=== PATIENT | male | born 1965 | race Caucasian/White ===

== ENCOUNTER 2016-09-13 08:48 | Emergency (ER) | payer MEDICARE, OTHER ==
[~2016-09-13] VITALS: Ht 193 cm; Wt 66.0 kg
[~2016-09-13 08:48] MED LIST: CLIN150 PO; GABA100C4 PO
[2016-09-13 08:57] VITALS: BP 155/110; PULSE 91; RESP 16; TEMP 97.9; O2SAT 100
[2016-09-13] MEDS ORDERED: RISP0.5T20 PO (09:12)
[2016-09-13] MEDS ORDERED: TEGR200T PO (09:12)
--- NOTE | 2016-09-13 10:00 | PD ---
HPI Chief Complaint: Seizure Time Seen by Provider: 09:04 Travel History International Travel<30 days: No Contact w/Intl Traveler<30days: No Traveled to known affect area: No History of Present Illness HPI This is a 50 year old male who presents having had a seizure four days ago while he was walking down the stairs, injuring his left wrist, right ankle and 2nd toe on his left foot. Since then the patient has been taking care of them at home, however the pain in his wrist has been persistent, "grating and sharp" , keeping him up at night, 7/10 severity. He is able to walk on his ankle and is limping, and he has noticed a significant amount of swelling. The patient does have a history of seizures, but his insurance is mixed up and he has been out of seizure medication for 2 months. He has been having several grand mal seizures per month. Pt was on tegretol and gabapentin. PFSH Past Medical History ADHD: Yes Arthritis: No Asthma: No Autoimmune Disease: No Blood Disorders: No Bipolar Disorder: Yes Anxiety: Yes Depression: Yes Heart Rhythm Problems: No Cancer: No Cardiovascular Problems: Yes (htn on meds) High Cholesterol: Yes Chest Pain: No Congestive Heart Failure: No COPD: Yes Cystic Fibrosis: No Diminished Hearing: No Endocrine: No Gastrointestinal Disorders: No Genitourinary: No Herniated Disk: Yes Hypertension: Yes Immune Disorder: No Implanted Vascular Access Dvce: No Insomnia: Yes Musculoskeletal: Yes Neurologic: Yes (NEUROPATHY) Psychiatric: Yes (Extensive hx of treatment for depression/Bipolar Disorder) Reproductive: No Respiratory: Yes (copd) Integumentary: Yes (HX MRSA 10 YRS AGO FROM WOUND INFECTION) Immunizations Current: Yes Migraines: Yes PNEUMOCCOCAL Vaccine (Year): 1 Past Surgical History Abdominal Surgery: No Cardiac Surgery: No Ear Surgery: No Endocrine Surgery: No Eye Surgery: No Genitourinary Surgery: No Gynecologic Surgery: No Neurologic Surgery: Yes (CERVICAL FUSION) Oral Surgery: No Pacemaker: No Thoracic Surgery: No Other Surgery: Yes ( CARPAL TUNNEL SURGERY BILAT) Social History Alcohol Use: No (denies) Tobacco Use: Yes (1 PPD) Substance Use: Yes Allergies-Medications (Allergen,Severity, Reaction): Coded Allergies: *MDRO Multi-Drug Resistant Organism (Verified Adverse Reaction, Unknown, ) MRSA PCR screen (nares) POSITIVE - 05/09/16 MRSA (elbow) - 05/14/16 Reported Meds & Prescriptions Reported Meds & Active Scripts Active Reported Risperdal (Risperidone) 0.5 Mg Tab 0.5 Mg PO HS Tegretol (Carbamazepine) 200 Mg Tab 200 Mg PO BID Gabapentin 100 Mg Cap 100 Mg PO BID Review of Systems Except as stated in HPI: all other systems reviewed are Neg Physical Exam Narrative GENERAL:Well appearing, no acute distress SKIN: Left second toe is ecchymotic. HEAD: Atraumatic. Normocephalic. EYES: Pupils equal and round. No injection or drainage. ENT: Moist mucous membranes NECK: Trachea midline. CARDIOVASCULAR: Regular rate and rhythm. No murmur appreciated. RESPIRATORY: Mild diffuse wheezing. GASTROINTESTINAL: Abdomen soft, non-tender, nondistended. MUSCULOSKELETAL: Tender to palpation over the thenar eminence of the left hand, limited range of motion of the wrist secondary to pain. R. Ankle is swollen over the lateral malleolus, with some pain with inversion and limited range of motion. NEUROLOGICAL: Awake and alert. No obvious cranial nerve deficits. Moving all extremities. PSYCHIATRIC: Appropriate mood and affect; insight and judgment normal. Data Data Last Documented VS Vital Signs Date Time Temp Pulse Resp B/P Pulse Ox O2 Delivery O2 Flow Rate FiO2 09/13/16 08:57 97.9 91 16 155/110 100 Orders Wrist, Complete ([id number]) (09/13/16 ) Hand, Complete ([id number]) (09/13/16 ) Ankle, Complete ([id number]) (09/13/16 ) [facility] Medical Decision Making Medical Screen Exam Complete: Yes Emergency Medical Condition: Yes Interpretation(s) Afebrile, no tachycardia, hypertensive X-ray hand: Scaphoid fracture Last 24 hours Impressions Wrist X-Ray 09/13/16 0000 Signed Impressions: Service Date/Time: Tuesday, September 13, 2016 10:38 - CONCLUSION: Negative for fracture or dislocation. Followup in 7-10 days is suggested if symptoms persist. Umesh Kamara MD FACR Differential Diagnosis Scaphoid fracture, scapholunate dissociation, metacarpal fracture, wrist sprain , distal radius fracture, fibular fracture Narrative Course This is a 50-year-old male who presents to the emergency department with pain in his hand following a fall. He has evidence of a possible scaphoid fracture on x-ray which is consistent with his exam. He'll be placed in a thumb spica splint and he will follow up with hand surgery as an outpatient. He also is requesting refills of his seizure medication which I will provide him for one month. Diagnosis Primary Impression: Scaphoid fracture Qualified Code: S62.002A - Closed nondisplaced fracture of scaphoid of left wrist, unspecified portion of scaphoid, initial encounter Referrals: Lona Smiley MD Patient Instructions: General Instructions Additional Instructions: If you develop increasing numbness, weakness, coolness or severe pain of your hand return to the emergency department. It is very important that you follow up with a hand surgeon as you may need surgery. Med/Other Pt SpecificInfo: No Change to Meds Scripts Gabapentin 100 Mg [id number] Mg PO BID #60 CAP Ref 0 Prov:Amanda Henson MD 09/13/16 Carbamazepine 200 Mg [id number] Mg PO BID #60 TAB Ref 0 Prov:Amanda Henson MD 09/13/16 Disposition: 01 DISCHARGE HOME Condition: Stable Amanda Henson MD Sep 13, 2016 10:00
--- NOTE | 2016-09-13 11:35 | RADHPO ---
EXAM DATE/TIME: 09/13/2016 10:38 [facility] COMPARISON: No previous studies available for comparison. INDICATIONS : Left wrist pain post seizure. MEDICAL HISTORY : Hypertension. Hypercholesterolemia. Chronic obstructive pulmonary disease. SURGICAL HISTORY : Fusion, cervical. ENCOUNTER: Initial ACUITY: 4 - 6 days PAIN SCORE: 5/10 LOCATION: Left wrist FINDINGS: Three view examination of the left wrist demonstrates no soft tissue swelling, dislocation, or fractu re. The carpal bones are in normal alignment. The joint spaces are maintained. Bony mineralization is normal. CONCLUSION: Negative for fracture or dislocation. Followup in 7-10 days is suggested if symptoms persist. Umesh Kamara MD FACR on September 13, 2016 at 11:33 Board Certified Radiologist. This report was verified electronically.
--- NOTE | 2016-09-13 11:41 | RADHPO ---
EXAM DATE/TIME: 09/13/2016 10:43 [facility] COMPARISON: WRIST LEFT COMPLETE ([id number]), September 13, 2016, 10:38. INDICATIONS : Left hand pain post seizure. MEDICAL HISTORY : Hypertension. Hypercholesterolemia. Chronic obstructive pulmonary disease. SURGICAL HISTORY : Fusion, cervical. ENCOUNTER: Initial ACUITY: 4 - 6 days PAIN SCORE: 5/10 LOCATION: Left hand FINDINGS: There may be a small avulsion from the carpal navicular. In addition, there is a sclerotic line acro ss the carpal navicular could be a nondisplaced fracture. This could be confirmed by MRI. No other fractures are appreciated. CONCLUSION: Abnormal carpal navicular. Umesh Kamara MD FACR on September 13, 2016 at 11:18 Board Certified Radiologist. This report was verified electronically.
--- NOTE | 2016-09-13 11:43 | RADHPO ---
EXAM DATE/TIME: 09/13/2016 10:47 [facility] COMPARISON: No previous studies available for comparison. INDICATIONS : Right ankle pain after seizure. MEDICAL HISTORY : Hypertension. Hypercholesterolemia. Chronic obstructive pulmonary disease. SURGICAL HISTORY : Discectomy, thoracic. ENCOUNTER: Initial ACUITY: 4 - 6 days PAIN SCORE: 6/10 LOCATION: Right lateral ankle FINDINGS: There are degenerative changes about the lateral malleolus. Alignment is anatomic. A fracture is no t appreciated. There is no significant soft tissue swelling. CONCLUSION: Degenerative changes, otherwise negative. Umesh Kamara MD FACR on September 13, 2016 at 11:22 Board Certified Radiologist. This report was verified electronically.
[2016-09-13] MEDS ORDERED: CARB200T PO (11:49)
[2016-09-13] MEDS ORDERED: GABA100C4 PO (11:49)
== END 2016-09-13 12:23 | disposition home or self-care (01) ==
LOC: PHED 08:48
DX: S62.002A Unspecified fracture of navicular [scaphoid] bone of left wrist, initial encounter for closed fracture (principal); M25.571 Pain in right ankle and joints of right foot; G40.409 Other generalized epilepsy and epileptic syndromes, not intractable, without status epilepticus; E78.00 Pure hypercholesterolemia, unspecified; I10 Essential (primary) hypertension; F17.210 Nicotine dependence, cigarettes, uncomplicated; W10.9XXA Fall (on) (from) unspecified stairs and steps, initial encounter; Y93.89 Activity, other specified; Y92.9 Unspecified place or not applicable
CPT/HCPCS: 73110; 73130; 73610; 99283; L3808

== ENCOUNTER 2016-09-19 19:04 | Emergency (ER) | payer MEDICARE, OTHER ==
[~2016-09-19 19:04] MED LIST changes: +CARB200T PO; -CLIN150 PO; +RISP0.5T20 PO; +TEGR200T PO
[2016-09-19 19:32] VITALS: BP 112/72; PULSE 74; RESP 20; TEMP 97.3; O2SAT 100
[2016-09-19] MEDS ORDERED: VENTAER INH (20:02)
[2016-09-19] MEDS ORDERED: ADVA100A INH (20:02)
[2016-09-19 20:22] VITALS: BP 134/85; PULSE 84; RESP 16; TEMP 97.6; O2SAT 97
[2016-09-19] MEDS ORDERED: OXYC-396 PO (20:37)
[2016-09-19 20:43] LABS: AUTOMATED NEUTROPHIL # 7.2 TH/MM3 (1.8-7.7); BASOPHIL # 0.1 TH/MM3 (0-0.2); BASOPHIL % 0.7 % (0.0-2.0); EOSINOPHIL # 0.1 TH/MM3 (0-0.4); EOSINOPHIL % 1.3 % (0.0-4.0); HEMATOCRIT 37.6 % (39.0-51.0); HEMO FLAGS DIFF FINAL; LYMPH % 23.7 % (9.0-44.0); LYMPHOCYTE # 2.5 TH/MM3 (1.0-4.8); MEAN CELL VOLUME 89.5 FL (80.0-100.0); MEAN CORPUSCULAR HEMOGLOBIN 31.3 PG (27.0-34.0); MONO % 6.3 % (0.0-8.0); PLATELET COUNT 330 TH/MM3 (150-450); WHITE BLOOD COUNT 10.6 TH/MM3 (4.0-11.0)
[2016-09-19 20:47] LABS: POTASSIUM 3.6 MEQ/L (3.5-5.1)
[2016-09-19 20:50] LABS: BICARBONATE 32.4 MEQ/L (21.0-32.0)
[2016-09-19] MEDS ORDERED: CEPHALEXIN MONOHYDRATE 500 MG CAP PO ONE (21:00)
[2016-09-19] MEDS ORDERED: CEPH-460 PO (21:00)
[2016-09-19] MEDS ORDERED: BACT800T5 PO (21:00)
[2016-09-19] MEDS ORDERED: SULFAMETHOXAZOLE-TRIMETHOPRIM DS 800-160 MG TAB PO ONE (21:00)
--- NOTE | 2016-09-19 21:01 | PD ---
HPI Chief Complaint: Skin Problem Time Seen by Provider: 19:46 Travel History International Travel<30 days: No Contact w/Intl Traveler<30days: No Traveled to known affect area: No History of Present Illness HPI This 50-year-old male is complaining of redness and pain in his right foot. Been going on for several days and seems to be getting worse. He had an accident about a week ago where he fell skateboarding and broke his left wrist. His left wrist is in a cast. He has a history of cellulitis and says he feels like he is having cellulitis again. He is not aware of fevers. He is having pain in the foot which is aggravated by walking PFSH Past Medical History ADHD: Yes Arthritis: No Asthma: No Autoimmune Disease: No Blood Disorders: No Bipolar Disorder: Yes Anxiety: Yes Depression: Yes Heart Rhythm Problems: No Cancer: No Cardiovascular Problems: Yes (htn on meds) High Cholesterol: Yes Chest Pain: No Congestive Heart Failure: No COPD: Yes Cystic Fibrosis: No Diminished Hearing: No Endocrine: No Gastrointestinal Disorders: No Genitourinary: No Herniated Disk: Yes Hypertension: Yes Immune Disorder: No Implanted Vascular Access Dvce: No Insomnia: Yes Musculoskeletal: Yes Neurologic: Yes (NEUROPATHY) Psychiatric: Yes (Extensive hx of treatment for depression/Bipolar Disorder) Reproductive: No Respiratory: Yes (copd) Integumentary: Yes (HX MRSA FROM WOUND INFECTION- LEFT LEG ) Immunizations Current: Yes Migraines: Yes PNEUMOCCOCAL Vaccine (Year): 1 Past Surgical History Abdominal Surgery: No Cardiac Surgery: No Ear Surgery: No Endocrine Surgery: No Eye Surgery: No Genitourinary Surgery: No Gynecologic Surgery: No Neurologic Surgery: Yes (CERVICAL FUSION) Oral Surgery: No Pacemaker: No Thoracic Surgery: No Other Surgery: Yes ( CARPAL TUNNEL SURGERY BILAT) Social History Alcohol Use: No (denies) Tobacco Use: Yes (1 PPD) Substance Use: No Allergies-Medications (Allergen,Severity, Reaction): Coded Allergies: *MDRO Multi-Drug Resistant Organism (Verified Adverse Reaction, Unknown, ) MRSA PCR screen (nares) POSITIVE - 05/09/16 MRSA (elbow) - 05/14/16 Reported Meds & Prescriptions Reported Meds & Active Scripts Active Reported Oxycodone (Oxycodone HCl) 20 Mg Tab 20 Mg PO Q6H PRN Ventolin Hfa 18 GM Inh (Albuterol Sulfate) 90 Mcg/Act Aer 2 Puff INH Q4H PRN Advair Diskus Inh (Fluticasone-Salmeterol Inh) 100-50 Mcg/Blist Aer 1 Puff INH BID Rinse mouth after use. Risperdal (Risperidone) 0.5 Mg Tab 0.5 Mg PO HS Tegretol (Carbamazepine) 200 Mg Tab 200 Mg PO BID Gabapentin 100 Mg Cap 100 Mg PO BID Review of Systems General / Constitutional: Positive: Chills, No: Fever Eyes: No: Diploplia, Blurred Vision HENT: No: Headaches, Vertigo Cardiovascular: No: Chest Pain or Discomfort Respiratory: No: Cough, Shortness of Breath Gastrointestinal: No: Vomiting, Diarrhea Genitourinary: No: Urgency, Frequency Musculoskeletal: Positive: Myalgias, Pain Skin: Positive Rash Neurologic: No: Weakness, Dizziness Endocrine: No: Cold Intolerance Hematologic/Lymphatic: No: Easy Bruising Physical Exam Narrative GENERAL: Well-developed male SKIN: Warm and dry. HEAD: Atraumatic. Normocephalic. EYES: Pupils equal and round. No scleral icterus. No injection or drainage. ENT: No nasal bleeding or discharge. Mucous membranes pink and moist. NECK: Trachea midline. No JVD. CARDIOVASCULAR: Regular rate and rhythm. No murmur appreciated. RESPIRATORY: No accessory muscle use. Clear to auscultation. Breath sounds equal bilaterally. GASTROINTESTINAL: Abdomen soft, non-tender, nondistended. Hepatic and splenic margins not palpable. MUSCULOSKELETAL: No obvious deformities. No clubbing. No cyanosis. No edema. He has a cast on his left arm. There is erythema and warmth of the skin of the right foot and ankle. There are no fluctuant areas. He has good range of motion of the foot and ankle NEUROLOGICAL: Awake and alert. No obvious cranial nerve deficits. Motor grossly within normal limits. Normal speech. PSYCHIATRIC: Appropriate mood and affect; insight and judgment normal. Data Data Last Documented VS Vital Signs Date Time Temp Pulse Resp B/P Pulse Ox O2 Delivery O2 Flow Rate FiO2 09/19/16 20:22 97.6 84 16 134/85 97 Room Air Orders Complete Blood Count With Diff (09/19/16 20:06) Basic Metabolic Panel (Bmp) (09/19/16 20:06) Labs Laboratory Tests Test 09/19/16 20:30 White Blood Count 10.6 TH/MM3 Red Blood Count 4.20 MIL/MM3 Hemoglobin 13.1 GM/DL Hematocrit 37.6 % Mean Corpuscular Volume 89.5 FL Mean Corpuscular Hemoglobin 31.3 PG Mean Corpuscular Hemoglobin 35.0 % Concent Red Cell Distribution Width 14.0 % Platelet Count 330 TH/MM3 Mean Platelet Volume 7.6 FL Neutrophils (%) (Auto) 68.0 % Lymphocytes (%) (Auto) 23.7 % Monocytes (%) (Auto) 6.3 % Eosinophils (%) (Auto) 1.3 % Basophils (%) (Auto) 0.7 % Neutrophils # (Auto) 7.2 TH/MM3 Lymphocytes # (Auto) 2.5 TH/MM3 Monocytes # (Auto) 0.7 TH/MM3 Eosinophils # (Auto) 0.1 TH/MM3 Basophils # (Auto) 0.1 TH/MM3 CBC Comment DIFF FINAL Differential Comment Sodium Level 140 MEQ/L Potassium Level 3.6 MEQ/L Chloride Level 101 MEQ/L Carbon Dioxide Level 32.4 MEQ/L Anion Gap 7 MEQ/L Blood Urea Nitrogen 6 MG/DL Creatinine 0.90 MG/DL Estimat Glomerular Filtration 90 ML/MIN Rate Random Glucose 98 MG/DL Calcium Level 8.9 MG/DL [facility] Medical Decision Making Medical Screen Exam Complete: Yes Emergency Medical Condition: Yes Medical Record Reviewed: Yes Differential Diagnosis Differential includes cellulitis, sepsis Narrative Course Patient is afebrile. His white count is 10,000. He is stable for outpatient treatment. He will be placed on Keflex and Bactrim Diagnosis Primary Impression: Cellulitis of right foot Scripts Sulfamethoxazole-Trimethoprim (Bactrim DS)800-160 Mg Tab1 Tab PO BID 7 Days Ref 0 Prov:Momo Rock MD 09/19/16 Cephalexin (Keflex)500 Mg Ten455 Mg PO Q6H 7 Days Ref 0 Prov:Momo Rock MD 09/19/16 Disposition: 01 DISCHARGE HOME Condition: Stable Momo Rock MD Sep 19, 2016 21:01
[2016-09-19] MEDS ORDERED: ACETAMINOPHEN/HYDROcodone 325 MG/5 MG TAB PO ONE (21:15)
[2016-09-19 22:02] VITALS: RESP 18
== END 2016-09-19 22:02 | disposition home or self-care (01) ==
LOC: PHED 19:04
DX: L03.115 Cellulitis of right lower limb (principal)
CPT/HCPCS: 80048; 85025; 99284

== ENCOUNTER 2016-09-22 15:37 | Inpatient (IN) | payer MEDICARE, OTHER ==
[~2016-09-22] VITALS: Ht 193 cm; Wt 67.2 kg
[~2016-09-22 15:37] MED LIST changes: +ADVA100A INH; +BACT800T5 PO; -CARB200T PO; +CEPH-460 PO; +OXYC-396 PO; +VENTAER INH
[2016-09-22 15:43] VITALS: BP 145/87; PULSE 82; RESP 18; TEMP 97.6; O2SAT 100
--- NOTE | 2016-09-22 16:05 | PD ---
HPI Chief Complaint: Pain: Acute or Chronic Time Seen by Provider: 16:04 Travel History International Travel<30 days: No Contact w/Intl Traveler<30days: No Traveled to known affect area: No History of Present Illness HPI Patient is a 50-year-old male with history of bipolar disorder and schizophrenia who presents voluntarily by private vehicle for suicidality. He has been off of his medications including Risperdal for 2 months and has had disorganized thinking. He states over the last 3 days he feels like he has had periods in time which he does not remember what he was doing. He has been hearing voices including his noted him to hurt himself. He states yesterday he took "half a bottle "of Lortab but does not know how many were in it. He reports depression and disorganized hitting as well. He denies visual hallucinations. He denies other attempts at self-harm or planning. He also has been off his carbamazepine and gabapentin which he takes for seizure disorder, states last seizure was approximately 2 weeks ago. Of note is a 3 days prior for right foot and ankle cellulitis. It is improving return to the patient has the swelling and redness is down. He states it is painful to walk on the foot but is improving. No pain with ranging of the ankle. Denies fever or chills. He has been taking the Bactrim and Keflex. PFSH Past Medical History Hx Anticoagulant Therapy: No ADHD: Yes Arthritis: No Asthma: No Autoimmune Disease: No Blood Disorders: No Bipolar Disorder: Yes Anxiety: Yes Depression: Yes Heart Rhythm Problems: No Cancer: No Cardiovascular Problems: Yes (htn on meds) High Cholesterol: Yes Chest Pain: No Congestive Heart Failure: No COPD: Yes Cystic Fibrosis: No Diminished Hearing: No Endocrine: No Gastrointestinal Disorders: No Genitourinary: No Herniated Disk: Yes Hypertension: Yes Immune Disorder: No Implanted Vascular Access Dvce: No Insomnia: Yes Musculoskeletal: Yes Neurologic: Yes (NEUROPATHY) Psychiatric: Yes (Extensive hx of treatment for depression/Bipolar Disorder) Reproductive: No Respiratory: Yes (copd) Integumentary: Yes (HX MRSA FROM WOUND INFECTION- LEFT LEG ) Immunizations Current: Yes Migraines: Yes PNEUMOCCOCAL Vaccine (Year): 1 Past Surgical History Abdominal Surgery: No Cardiac Surgery: No Ear Surgery: No Endocrine Surgery: No Eye Surgery: No Genitourinary Surgery: No Gynecologic Surgery: No Neurologic Surgery: Yes (CERVICAL FUSION) Oral Surgery: No Pacemaker: No Thoracic Surgery: No Other Surgery: Yes ( CARPAL TUNNEL SURGERY BILAT) Social History Alcohol Use: No (denies) Tobacco Use: Yes (1 PPD) Substance Use: No Allergies-Medications (Allergen,Severity, Reaction): Coded Allergies: *MDRO Multi-Drug Resistant Organism (Verified Adverse Reaction, Unknown, ) MRSA PCR screen (nares) POSITIVE - 05/09/16 MRSA (elbow) - 05/14/16 Reported Meds & Prescriptions Reported Meds & Active Scripts Active Keflex (Cephalexin) 500 Mg Cap 500 Mg PO Q6H 7 Days Reported Ventolin Hfa 18 GM Inh (Albuterol Sulfate) 90 Mcg/Act Aer 2 Puff INH Q4H PRN Advair Diskus Inh (Fluticasone-Salmeterol Inh) 100-50 Mcg/Blist Aer 1 Puff INH BID Rinse mouth after use. Risperdal (Risperidone) 0.5 Mg Tab 0.5 Mg PO HS Tegretol (Carbamazepine) 200 Mg Tab 200 Mg PO BID Review of Systems Except as stated in HPI: all other systems reviewed are Neg Physical Exam Narrative GENERAL: Well-developed and well-nourished adult male in no acute distress. Disheveled. SKIN: Minimal erythema and warmth over the dorsal medial aspect of the right ankle and foot. There is no induration or fluctuance. No streaking. No edema. Mildly tender to palpation over the soft tissues medial ankle. Warm and dry. Good turgor without tenting. HEAD: Normocephalic and atraumatic. EYES: PERRL bilaterally, 5mm. EOMI bilaterally. No injection or icterus present. No proptosis. Lids without edema or erythema. ENT: Buccal mucosa pink and moist. Oropharynx free of erythema, tonsillar hypertrophy, masses, swelling, asymmetry and exudates. Uvula midline and airway patent. NECK: Supple, no meningeal signs. Trachea midline, no JVD. No cervical or facial lymphadenopathy. CARDIOVASCULAR: Regular rate and rhythm without murmurs, rubs, clicks or gallops dorsalis pedis and posterior tibial pulses 2+ bilaterally. No pedal edema. Capillary refill less than 2 seconds distal tip of all fingers of left upper extremity which are in a splint. RESPIRATORY: Clear to auscultation bilaterally with symmetrical rise and fall, no distress or use of accessory muscles. GASTROINTESTINAL: Non-tender, non-distended. Normal bowel sounds all 4 quadrants. No masses or organomegaly present. MUSCULOSKELETAL: Right foot and ankle has minor cellulitis to the right lower extremity which is resolving by history. No evidence of abscess. No pain on palpation of the joint and has normal range of motion in the right ankle. Thumb spica splint and placed in left upper extremity. No gait disturbances. Patient freely moving all four extremities spontaneously. Extremities without clubbing, cyanosis, or edema. No obvious deformities. NEUROLOGIC: CN II-XII grossly intact. Awake and alert. Motor grossly within normal limits. Normal speech. PSYCHIATRIC: Tearful. Appears to be responding to internal stimuli. Data Data Last Documented VS Vital Signs Date Time Temp Pulse Resp B/P Pulse Ox O2 Delivery O2 Flow Rate FiO2 09/22/16 19:31 67 18 134/98 98 09/22/16 17:39 Room Air 09/22/16 15:43 97.6 Orders Complete Blood Count With Diff (09/22/16 16:03) Comprehensive Metabolic Panel (09/22/16 16:03) Urinalysis - C+S If Indicated (09/22/16 16:03) Iv Access Insert/Monitor (09/22/16 16:03) Psych Screen (09/22/16 16:03) Drug Screen, Random Urine (09/22/16 16:03) Alcohol (Ethanol) (09/22/16 16:03) Salicylates (Aspirin) (09/22/16 16:03) Tylenol (Acetaminophen) (09/22/16 16:03) Electrocardiogram (09/22/16 16:06) Carbamazepine (Tegretol) (09/22/16 16:06) Sulfamet-Trimeth Ds 800-160 Mg (Bactrim (09/22/16 17:45) Cephalexin (Keflex) (09/22/16 17:45) Ibuprofen (Motrin) (09/22/16 18:45) Acetaminophen (Tylenol) (09/22/16 21:30) Magnesium Hydroxide Liq (Milk Of Magnesi (09/22/16 21:30) Al-Mag Hy-Si 40-40-4 Mg/Ml Liq (Mag-Al P (09/22/16 21:30) Albuterol Hfa Inh (Proair Hfa Inh) (09/22/16 21:30) Cephalexin (Keflex) (09/23/16 00:00) Carbamazepine (Tegretol) (09/23/16 09:00) Risperidone (Risperdal) (09/23/16 21:00) Budeson-Formot 80-4.5 Mcg Inh (Symbicort (09/23/16 09:00) Admit To Inpatient Psych (09/22/16 ) Vital Signs (Adult) ALINA.Q12H.E (09/22/16 21:38) Activity Oob Ad Mima (09/22/16 21:38) Level Of Observation (Psych) (09/22/16 21:38) Basic Metabolic Panel (Bmp) (09/23/16 06:00) Thyroid Stimulating Hormone (09/23/16 06:00) Free Thyroxine (T4) (09/23/16 06:00) Lipid Profile (09/23/16 06:00) Phosphorus (Po4) (09/23/16 06:00) Magnesium (Mg) (09/23/16 06:00) Uric Acid (09/23/16 06:00) Creatine Kinase (Cpk) (09/23/16 06:00) Rapid Plasmin Reagin Screen (09/23/16 06:00) Hemoglobin (Hgb) A1c (09/23/16 06:00) Vitamin D, 25-Hydroxy (09/23/16 06:00) Carbamazepine (Tegretol) (09/23/16 06:00) Vitamin B12 (09/23/16 06:00) Consult Hospitalist (09/22/16 ) Admit Order (Ed Use Only) (09/22/16 21:38) Labs Laboratory Tests Test 09/22/16 09/22/16 16:15 16:20 Urine Collection Type VOIDED Urine Color YELLOW Urine Turbidity CLEAR Urine pH 6.5 Urine Specific [place] 1.029 Urine Protein TRACE mg/dL Urine Glucose (UA) NEG mg/dL Urine Ketones TRACE mg/dL Urine Occult Blood NEG Urine Nitrite NEG Urine Bilirubin NEG Urine Leukocyte Esterase NEG Urine WBC 0-2 /hpf Urine Squamous Epithelial 0-2 /hpf Cells Microscopic Urinalysis Comment CULT NOT INDICATED Urine Opiates Screen NEG Urine Barbiturates Screen NEG Urine Amphetamines Screen NEG Urine Benzodiazepines Screen POS Urine Cocaine Screen NEG Urine Cannabinoids Screen POS White Blood Count 11.9 TH/MM3 Red Blood Count 4.99 MIL/MM3 Hemoglobin 15.1 GM/DL Hematocrit 44.2 % Mean Corpuscular Volume 88.6 FL Mean Corpuscular Hemoglobin 30.2 PG Mean Corpuscular Hemoglobin 34.1 % Concent Red Cell Distribution Width 13.7 % Platelet Count 427 TH/MM3 Mean Platelet Volume 7.7 FL Neutrophils (%) (Auto) 70.5 % Lymphocytes (%) (Auto) 22.8 % Monocytes (%) (Auto) 5.6 % Eosinophils (%) (Auto) 0.4 % Basophils (%) (Auto) 0.7 % Neutrophils # (Auto) 8.4 TH/MM3 Lymphocytes # (Auto) 2.7 TH/MM3 Monocytes # (Auto) 0.7 TH/MM3 Eosinophils # (Auto) 0.0 TH/MM3 Basophils # (Auto) 0.1 TH/MM3 CBC Comment DIFF FINAL Differential Comment Sodium Level 143 MEQ/L Potassium Level 4.0 MEQ/L Chloride Level 103 MEQ/L Carbon Dioxide Level 30.3 MEQ/L Anion Gap 10 MEQ/L Blood Urea Nitrogen 13 MG/DL Creatinine 1.00 MG/DL Estimat Glomerular Filtration 80 ML/MIN Rate Random Glucose 91 MG/DL Calcium Level 9.4 MG/DL Total Bilirubin 0.2 MG/DL Aspartate Amino Transf 16 U/L (AST/SGOT) Alanine Aminotransferase 18 U/L (ALT/SGPT) Alkaline Phosphatase 103 U/L Total Protein 7.5 GM/DL Albumin 3.6 GM/DL Salicylates Level 5.3 MG/DL Acetaminophen Level LESS THAN 2.0 MCG/ML Carbamazepine (Tegretol) Level LESS THAN 0.5 MCG/ML Ethyl Alcohol Level LESS THAN 3 MG/DL MDM Medical Decision Making Medical Screen Exam Complete: Yes Emergency Medical Condition: Yes Interpretation(s) EKG: Normal sinus rhythm with rate of 65. Normal axis and intervals. There is some T-wave flattening in lead V2 which is chronic when compared to previous. There is some peaked T waves that are asymmetric this is mainly in the precordial leads. Laboratory Tests Test 09/22/16 09/22/16 16:15 16:20 Urine Collection Type VOIDED Urine Color YELLOW (YELLW/STRAW) Urine Turbidity CLEAR (CLEAR) Urine pH 6.5 (5.0-8.5) Urine Specific [place] 1.029 (1.002-1.035) Urine Protein TRACE mg/dL (NEG-TRACE) Urine Glucose (UA) NEG mg/dL (NEG) Urine Ketones TRACE mg/dL (NEG) Urine Occult Blood NEG (NEG) Urine Nitrite NEG (NEG) Urine Bilirubin NEG (NEG) Urine Leukocyte Esterase NEG (NEG) Urine WBC 0-2 /hpf (0-5) Urine Squamous Epithelial 0-2 /hpf (0-5) Cells Microscopic Urinalysis Comment CULT NOT INDICATED Urine Opiates Screen NEG (NEG) Urine Barbiturates Screen NEG (NEG) Urine Amphetamines Screen NEG (NEG) Urine Benzodiazepines Screen POS (NEG) Urine Cocaine Screen NEG (NEG) Urine Cannabinoids Screen POS (NEG) White Blood Count 11.9 TH/MM3 (4.0-11.0) Red Blood Count 4.99 MIL/MM3 (4.50-5.90) Hemoglobin 15.1 GM/DL (13.0-17.0) Hematocrit 44.2 % (39.0-51.0) Mean Corpuscular Volume 88.6 FL (80.0-100.0) Mean Corpuscular Hemoglobin 30.2 PG (27.0-34.0) Mean Corpuscular Hemoglobin 34.1 % Concent (32.0-36.0) Red Cell Distribution Width 13.7 % (11.6-17.2) Platelet Count 427 TH/MM3 (150-450) Mean Platelet Volume 7.7 FL (7.0-11.0) Neutrophils (%) (Auto) 70.5 % (16.0-70.0) Lymphocytes (%) (Auto) 22.8 % (9.0-44.0) Monocytes (%) (Auto) 5.6 % (0.0-8.0) Eosinophils (%) (Auto) 0.4 % (0.0-4.0) Basophils (%) (Auto) 0.7 % (0.0-2.0) Neutrophils # (Auto) 8.4 TH/MM3 (1.8-7.7) Lymphocytes # (Auto) 2.7 TH/MM3 (1.0-4.8) Monocytes # (Auto) 0.7 TH/MM3 (0-0.9) Eosinophils # (Auto) 0.0 TH/MM3 (0-0.4) Basophils # (Auto) 0.1 TH/MM3 (0-0.2) CBC Comment DIFF FINAL Differential Comment Sodium Level 143 MEQ/L (136-145) Potassium Level 4.0 MEQ/L (3.5-5.1) Chloride Level 103 MEQ/L (98-107) Carbon Dioxide Level 30.3 MEQ/L (21.0-32.0) Anion Gap 10 MEQ/L (5-15) Blood Urea Nitrogen 13 MG/DL (7-18) Creatinine 1.00 MG/DL (0.60-1.30) Estimat Glomerular Filtration 80 ML/MIN (>89) Rate Random Glucose 91 MG/DL (74-106) Calcium Level 9.4 MG/DL (8.5-10.1) Total Bilirubin 0.2 MG/DL (0.2-1.0) Aspartate Amino Transf 16 U/L (15-37) (AST/SGOT) Alanine Aminotransferase 18 U/L (12-78) (ALT/SGPT) Alkaline Phosphatase 103 U/L (45-117) Total Protein 7.5 GM/DL (6.4-8.2) Albumin 3.6 GM/DL (3.4-5.0) Salicylates Level 5.3 MG/DL (2.8-20.0) Acetaminophen Level LESS THAN 2.0 MCG/ML (10.0-30.0) Carbamazepine (Tegretol) Level LESS THAN 0.5 MCG/ML (4.0-12.0) Ethyl Alcohol Level LESS THAN 3 MG/DL (0-5) Differential Diagnosis SI versus depression versus anxiety versus bipolar disorder versus schizophrenia versus substance abuse versus mood disorder versus personality disorder versus adjustment disorder Narrative Course Patient is a 50-year-old male with a history of bipolar disorder and schizophrenia who has been off his medications for approximately 2 months. He presents voluntarily with complaint of suicidality with attempt with opioids 2 days ago, depression, auditory hallucinations, and having periods of time where he does not recall events. He denies any seizures but has been off his seizure medications for several weeks as well. He is afebrile and nontoxic appearing. He has a mild cellulitis to the right lower extremity which is resolving by history, he is taking his medications. He has a thumb spica splint in the left upper extremity for a presumable scaphoid fracture due to a fall on September 13, 2016. Ordered EKG, labs including carbamazepine level, alcohol, Tylenol and salicylates. A sitter is observing the patient. He was given his dose of Bactrim and Keflex for the afternoon. CBC shows leukocytosis of 11.9 with a mild neutrophilia, no bands. Metabolic panel shows creatinine 1.00. Urinalysis trace ketones. Ethanol less than 3. UDS positive for cannabinoids and benzodiazepines, no opioids. Tylenol less than 2. Salicylates 5.3. Carbamazepine level is low. I discussed with Dr. Rock who feels the cellulitis is improving compared to 3 days prior when he saw the patient and as the patient reports improvement and is on appropriate treatment there is no need for any further emergent intervention. The leukocytosis is due to the cellulitis or possibly his agitated state does not require any inpatient treatments. Patient is medically cleared to proceed with psych evaluation. [facility]. Recommend continuing antibiotics while he is being evaluated. [facility] is being [facility] where psychiatry will further evaluate him. I gave report to the nurse Katie Lopes who understands the patient is voluntary but these be converted to a Hughes act if attempts to leave. Diagnosis Primary Impression: Attempted suicide Additional Impression: Cellulitis of right foot Condition: Stable Darrel Garcia III Sep 22, 2016 16:05
[2016-09-22 16:38] LABS: AUTOMATED NEUTROPHIL # 8.4 TH/MM3 (1.8-7.7); BASOPHIL # 0.1 TH/MM3 (0-0.2); BASOPHIL % 0.7 % (0.0-2.0); EOSINOPHIL % 0.4 % (0.0-4.0); HEMATOCRIT 44.2 % (39.0-51.0); HEMO FLAGS DIFF FINAL; LYMPH % 22.8 % (9.0-44.0); LYMPHOCYTE # 2.7 TH/MM3 (1.0-4.8); MEAN CELL VOLUME 88.6 FL (80.0-100.0); MEAN CORPUSCULAR HEMOGLOBIN 30.2 PG (27.0-34.0); MEAN CORPUSCULAR HGB CONC 34.1 % (32.0-36.0); MONO % 5.6 % (0.0-8.0); NEUT % 70.5 % (16.0-70.0); PLATELET COUNT 427 TH/MM3 (150-450); RED BLOOD COUNT 4.99 MIL/MM3 (4.50-5.90); RED CELL DISTRIBUTION WIDTH 13.7 % (11.6-17.2); WHITE BLOOD COUNT 11.9 TH/MM3 (4.0-11.0)
[2016-09-22 16:40] LABS: BLOOD, URINE NEG (NEG); GLUCOSE,URINE NEG (NEG); KETONE, URINE TRACE mg/dL (NEG); NITRITE,URINE NEG (NEG); PH, URINE 6.5 (5.0-8.5)
[2016-09-22 16:46] LABS: CHLORIDE 103 MEQ/L (98-107); SODIUM (NA) 143 MEQ/L (136-145)
[2016-09-22 16:50] LABS: ANION GAP 10 MEQ/L (5-15); BICARBONATE 30.3 MEQ/L (21.0-32.0); BLOOD UREA NITROGEN 13 MG/DL (7-18)
[2016-09-22 16:53] LABS: ALT (GPT) 18 U/L (12-78); AST (GOT) 16 U/L (15-37); GLOMERULAR FILTRATION RATE 80 ML/MIN (>89)
[2016-09-22 16:54] LABS: TOTAL BILIRUBIN ADULT 0.2 MG/DL (0.2-1.0)
[2016-09-22 16:56] LABS: METHOD OF COLLECTION VOIDED; URINE COLOR YELLOW (YELLW/STRAW)
[2016-09-22 16:56] LABS: ALKALINE PHOSPHATASE 103 U/L (45-117)
[2016-09-22 16:57] LABS: COMMENT (UR) CULT NOT INDICATED; CULTURE IF INDICATED CULT NOT INDICATED; SQUAMOUS EPITHELIAL CELL URINE 0-2 /hpf (0-5); WBC, URINE 0-2 /hpf (0-5)
[2016-09-22 16:58] LABS: AMPHETAMINE, URINE NEG (NEG)
[2016-09-22 16:59] LABS: BARBITURATES, URINE NEG (NEG)
[2016-09-22 17:04] LABS: COCAINE, URINE NEG (NEG)
[2016-09-22 17:39] VITALS: BP 148/86; PULSE 88; RESP 18; O2SAT 99
[2016-09-22 17:40] LABS: ACETAMINOPHEN LESS THAN 2.0 MCG/ML (10.0-30.0)
[2016-09-22] MEDS ORDERED: CEPHALEXIN MONOHYDRATE 500 MG CAP PO ONE (17:45)
[2016-09-22] MEDS ORDERED: SULFAMETHOXAZOLE-TRIMETHOPRIM DS 800-160 MG TAB PO ONE (17:45)
[2016-09-22] MEDS ORDERED: IBUPROFEN 400 MG TAB PO ONE (18:45)
[2016-09-22 19:31] VITALS: BP 134/98
[2016-09-22] MEDS ORDERED: MAGNESIUM HYDROXIDE SUSP 30 ML CUP PO PRN (21:30)
[2016-09-22] MEDS ORDERED: ALBUTEROL SULFATE 90 MCG/ACT HFA 8 GM INHALER INH PRN (21:30)
[2016-09-22] MEDS ORDERED: ALUMINUM/MAGNESIUM/SIMETH 30 ML CUP PO PRN (21:30)
[2016-09-22 22:26] VITALS: BP 122/96; PULSE 77; RESP 16; TEMP 97.3; O2SAT 96
[2016-09-22] MEDS: CEPHALEXIN MONOHYDRATE 500 MG CAP PO SCH (23:00)
[2016-09-23] MEDS: CEPHALEXIN MONOHYDRATE 500 MG CAP PO SCH ×4 (05:38→23:10)
[2016-09-23 05:44] VITALS: BP 126/78; PULSE 96; RESP 18; TEMP 98; O2SAT 96
[2016-09-23] MEDS: carBAMazepine 200 MG TAB PO SCH ×2 (08:42→19:52)
[2016-09-23] MEDS: SULFAMETHOXAZOLE-TRIMETHOPRIM DS 800-160 MG TAB PO SCH (08:44)
[2016-09-23] MEDS: BUDESONIDE-FORMOTEROL 80/4.5 MCG INHALER INH SCH ×2 (09:00→19:52)
[2016-09-23 10:01] LABS: ANION GAP 5 MEQ/L (5-15); BLOOD UREA NITROGEN 11 MG/DL (7-18); CHLORIDE 102 MEQ/L (98-107); FREE T4 0.91 NG/DL (0.76-1.46); GLOMERULAR FILTRATION RATE 67 ML/MIN (>89); HDL CHOLESTEROL 49.9 MG/DL (40.0-60.0); LDL CHOLESTEROL 108 MG/DL (0-99); MAGNESIUM 2.2 MG/DL (1.5-2.5); POTASSIUM 3.9 MEQ/L (3.5-5.1); SODIUM (NA) 139 MEQ/L (136-145); URIC ACID 4.1 MG/DL (2.6-7.2)
[2016-09-23 10:13] LABS: CREATINE KINASE 94 U/L (39-308)
--- NOTE | 2016-09-23 12:02 | HHI.HP ---
Provisional Diagnosis Admission Date Sep 22, 2016 at 21:43 [place] I. 1. Polysubstance abuse with substance-induced mood disorder Rule out underlying psychotic disorder [place] II. Deferred [place] V. GAF is 30 presently Certification of Person's Competence To Provide Express and Informed Consent I have personally examined Nazario Flores , a person being served at [facility] on, Sep 23, 2016 11:49. Express and informed consent means consent voluntarily given in writing, by a competent person, after sufficient explanation and disclosure of the subject matter involved to enable the person to make a knowing and willful decision without any element of force, fraud, deceit, duress, or other form of constraint or coercion. This person is 18 years of age or older, is not now known to be incompetent to consent to treatment with a guardian advocate, and does not have a health care surrogate or proxy currently making medical treatment decisions. I have found this person to be one of the following: [x] Competent to provide express and informed consent, as defined above, for voluntary admission to this facility and is competent to provide express and informed consent for treatment. He/she has the consistent capacity to make well reasoned, willful, and knowing decisions concerning his or her medical or mental health treatment. The person fully and consistently understands the purpose of the admission for examination/placement and is fully capable of personally exercising all rights assured [place] Incompetent to provide express and informed consent to voluntary admission, and this is incompetent to provide express and informed consent to treatment. The person must be transferred to involuntary status and a petition for a guardian advocate filed with the Circuit Court. [] Refusing to provide express and informed consent to voluntary admission but is competent to provide express and informed consent for treatment. The person must be discharged or transferred to involuntary status. Form shall be completed within 24 hours of a person's arrival at the receiving facility and filed in the clinical record of each person: 1. Admitted on a voluntary basis 2. Permitted to provide express and informed consent to his/her own treatment 3. Allowed to transfer from involuntary to voluntary status 4. Prior to permitting a person to consent to his or her own treatment after having been previously found incompetent to consent to treatment. History of Present Illness Capacity: Has Capacity HPI Mr. Flores is a 50-year-old male with a reported history of schizophrenia who presents voluntarily for psychiatric evaluation. Reviewing the ED provider notes I see that the patient took a quantity of Lortab yesterday for unclear reasons and has been nonadherent with his antiepileptics. Reviewing the electronic medical record, I note the patient was seen most recently by Dr. Soriano in May of last year. Patient seen and examined with nurse. Chart reviewed. Case discussed with nursing staff. On my examination today, the patient reports that he has been feeling more depressed recently related to the upcoming anniversary of his ' s passing. He feels very guilty because his by overdose when the 2 were using drugs together. He says "I'm over the suicide trip" and denies suicidal ideation or homicidal ideation at this time. He does report that his sleep is disrupted. He feels hopeless about the future. He reports hearing the voice of his who is occasionally deprecatory but noncommanding. No hypomanic or manic symptoms noted. No evident delusional beliefs. Patient does complain of some unrealized anxiety. The remainder of the psychiatric ROS is negative. Past psychiatric history: Patient reports prior diagnosis of schizophrenia. He says that he has done well in the past on Risperdal and BuSpar. He is not currently under the care of a psychiatrist. He reports his most recent psychiatric admission was here at [facility]. He reports multiple prior suicide attempts in the past. Family history: Patient reports a nonspecific family history of mental illness noting that there is a lot of "craziness" in his family. He denies any family history of suicide. Chemical dependency history: Patient admits to a history of abuse of narcotic pain medication but denies any recent substance abuse. His toxicology is positive for cannabinoids and benzodiazepines. I did review his controlled substances database report and note extensive multisourcing of prescribers. Most recently he was prescribed oxycodone and Valium on September 18 tabs of each for a 30 day supply. Social history: Patient reports that he lives alone. His is and he has 4 children but no grandchildren. He has his GED. He is on disability. Denies any or legal history. Denies any access to guns or firearms. Denies any bahai or spiritual beliefs. Review of Systems ROS Limitations: Poor Historian Other No somatic complaints Past Psych History Psychological trauma history No reported trauma history Substance Abuse History Drugs/Alcohol past 12 months See above Past Family Social History Coded Allergies: *MDRO Multi-Drug Resistant Organism (Verified Adverse Reaction, Unknown, ) MRSA PCR screen (nares) POSITIVE - 05/09/16 MRSA (elbow) - 05/14/16 Past Medical History See electronic medical record Active Scripts Cephalexin (Keflex)500 Mg Mes489 Mg PO Q6H 7 Days Ref 0 Prov:Momo Rock MD 09/19/16 Reported Medications Albuterol 18 GM Inh (Ventolin Hfa 18 GM Inh)90 Mcg/Act Aer2 Puff INH Q4H PRN ( SHORTNESS OF BREATH) #1 INHALER Ref 0 09/19/16 Fluticasone-Salmeterol Inh (Advair Diskus Inh)100-50 Mcg/Blist Aer1 Puff INH BID #1 INHALER Ref 0 Rinse mouth after use. 09/19/16 Risperidone (Risperdal)0.5 Mg Tab0.5 Mg PO HS #30 TAB Ref 0 09/13/16 Carbamazepine (Tegretol)200 Mg Muh580 Mg PO BID #60 TAB Ref 0 09/13/16 Discontinued Reported Medications Oxycodone 20 Mg Tab20 Mg PO Q6H PRN (PAIN) Ref 0 09/19/16 Gabapentin 100 Mg Eoe176 Mg PO BID #60 CAP Ref 0 06/12/16 Discontinued Scripts Sulfamethoxazole-Trimethoprim (Bactrim DS)800-160 Mg Tab1 Tab PO BID 7 Days Ref 0 Prov:oMmo Rock MD 09/19/16 Current Medications Medications (Trade) Dose Ordered Sig/Jack Route Start Time Stop Time Status Last Admin (Tylenol) 650 mg Q4H PRN PO 09/22/16 21:30 (Milk Of Magnesia Liq) 30 ml DAILY PRN PO 09/22/16 21:30 (Mag-Al Plus Susp Liq) 30 ml Q6H PRN PO 09/22/16 21:30 (Proair Hfa Inh) 2 puff Q4HR PRN INH 09/22/16 21:30 (Keflex) 500 mg Q6H PO 09/23/16 00:00 09/26/16 23:59 09/23/16 05:38 (TEGretol) 200 mg BID PO 09/23/16 09:00 09/23/16 08:42 (risperDAL) 0.5 mg HS PO 09/23/16 21:00 (Symbicort 80-4.5 Mcg Inh) 2 puff BID INH 09/23/16 09:00 (Bactrim Ds 800-160 Mg) 1 tab DAILY PO 09/23/16 09:00 09/26/16 08:59 09/23/16 08:44 Family History See above Social History See above Patient's Strengths (min. 2) In a monitored setting. Verbally fluent. Physical Exam Physical examination completed by ED provider. On my examination today, patient is in no acute physical distress. His left arm is bandaged reportedly from a skateboarding injury. No abnormal motor movements noted. Labs and vital signs reviewed. Vital Signs Vital Signs Date Time Temp Pulse Resp B/P Pulse Ox O2 Delivery O2 Flow Rate FiO2 09/23/16 05:44 98.0 96 18 126/78 96 09/22/16 17:39 Room Air Lab Results Item Value Date Time White Blood Count 11.9 TH/MM3 H 09/22/16 1620 Hemoglobin 15.1 GM/DL 09/22/16 1620 Platelet Count 427 TH/MM3 09/22/16 1620 Sodium Level 139 MEQ/L 09/23/16 0825 Potassium Level 3.9 MEQ/L 09/23/16 0825 Chloride Level 102 MEQ/L 09/23/16 0825 Carbon Dioxide Level 32.0 MEQ/L 09/23/16 0825 Anion Gap 5 MEQ/L 09/23/16 0825 Creatinine 1.16 MG/DL 09/23/16 0825 Blood Urea Nitrogen 11 MG/DL 09/23/16 0825 Aspartate Amino Transf (AST/SGOT) 16 U/L 09/22/16 1620 Alanine Aminotransferase (ALT/SGPT) 18 U/L 09/22/16 1620 Alkaline Phosphatase 103 U/L 09/22/16 1620 Total Creatine Kinase 94 U/L 09/23/16 0825 Vitamin B12 Level 859 PG/ML 09/23/16 0825 25-Hydroxy Vitamin D Total 29.1 ng/ML L 09/23/16 0825 Thyroid Stimulating Hormone 3rd Gen 0.312 uIU/ML L 09/23/16 0825 Free Thyroxine 0.91 NG/DL 09/23/16 0825 Urine Benzodiazepines Screen POS H 09/22/16 1615 Urine Cannabinoids Screen POS H 09/22/16 1615 Ethyl Alcohol Level LESS THAN 3 MG/DL 09/22/16 1620 Carbamazepine (Tegretol) Level LESS THAN 0.5 MCG/ML L 09/23/16 0825 Urinalysis bland. Mental Status Examination Patient is in hospital gown. He is somewhat disheveled. He is awake and alert and oriented 3. No motoric abnormalities noted. Speech is within normal limits for rate, tone and volume. Language and fund of knowledge seem average for age. Mood is depressed and affect is restricted. Thought process linear. No loosening of associations. No evident delusions. Describes auditory hallucinations as noted above. No other hallucinatory material. Denies suicidal or homicidal ideation. Insight and judgment are fair. Previous Suicide Attempts: No Assessment & Plan Problem List: (1) Other psychoactive substance abuse with psychoactive substance-induced mood disorder ICD Code: F19.14 Assessment & Plan This is a 50-year-old male with psychiatric history as detailed above who presents voluntarily to the ED for psychiatric evaluation. On my examination today, patient reports low mood occasioned by the anniversary of his 's passing. He did reportedly take a quantity of Lortab yesterday, but his toxicology is negative for opiates. I suspect that there are polysubstance use issues and and associated mood disorder. He does report a good response to Risperdal in the past. I will plan to admit the patient to the inpatient psychiatric unit for safety, observation and stabilization. Admit inpatient. Voluntary status. Consult the hospitalist for medical management of the patient. PT eval and falls precautions. CIWA with Ativan for any withdrawal. Risperdal 1 mg twice daily. Continue carbamazepine. Seizure prec. Atarax as needed for anxiety, Benadryl as needed for sleep, Cogentin as needed for EPS. Vitals every shift. Counselor to see. Disposition planning. Estimated length of stay: 7-9 days. Discharge Planning Pending psychiatric stabilization Request HC Surrog/Guard Advoc?: No Bhavesh Lopez MD Sep 23, 2016 12:01
[2016-09-23] MEDS ORDERED: BENZTROPINE MESYLATE 2 MG/2 ML VIAL IM PRN (12:15)
[2016-09-23] MEDS ORDERED: FLUMAZENIL 0.5 MG/5 ML VIAL IV PUSH PRN (12:15)
[2016-09-23] MEDS ORDERED: BENZTROPINE MESYLATE 1 MG TAB PO PRN (12:15)
[2016-09-23] MEDS ORDERED: LORazepam 2 MG/ML VIAL IV PUSH PRN ×4 (12:15)
[2016-09-23] MEDS: LORazepam 2 MG TAB PO PRN ×2 (13:06→19:52)
--- NOTE | 2016-09-23 13:13 | EKG ---
Date Performed: 09/22/2016 Time Performed: 16:19:42 PTAGE: 50 years EKG: Sinus rhythm Anterolateral ST elevation - possible early repolarization Compared to prior tracing no significant change Borderline ECG PREVIOUS TRACING : 06/08/2016 16.46 DOCTOR: Tank Hurley Interpretating Date/Time 09/23/2016 13:11:14
[2016-09-23] MEDS: NICOTINE 14 MG/24 HR PATCH TD SCH (16:45)
--- NOTE | 2016-09-23 16:52 | PD.CONS ---
HPI Service [facility] Hospitalists Consult Requested By Psychiatric services Reason for Consult Medical management including hypertension, cellulitis, seizure disorder, chronic pain and broken left arm Primary Care Physician Non-Staff Diagnoses: History of Present Illness This is a 50-year-old male patient with past medical history which includes bipolar, anxiety/depression, polysubstance abuse, suicide times the past, chronic neck and back pain status post heart cervical fusion, migraine headaches , degenerative disc disease, COPD, seizure disorder, hypertension, , hyperlipidemia and recent diagnosis of left nondisplaced scaphoid fracture on 09/13/2016 also diagnosed with right lower extremely cellulitis 09/19/2016. Patient is currently admitted to the inpatient psychiatric center we have been consulted for assistance with medical management included hypertension, cellulitis, seizure disorder, chronic pain and appropriate left arm. Patient evaluated resting in bed patient reports he feels as though he may be going through withdrawal from not having his OxyContin. Patient [facility] and [facility] is not on record there. Patient reports he has not taken his seizure medications gabapentin and Tegretol for approximately a month. Patient reports his last seizure was 2 weeks ago. Patient treated in [place] emergency room 09/13/2016 diagnosed with a closed nondisplaced fracture of the left scaphoid splint was placed and patient recommended follow-up with hand surgery he has not done so Patient was also treated for cellulitis of right lower extremity on 09/19/2016 Bactrim and Keflex were started with a stop date of 09/26/2016. Patient reports the right lower extremity cellulitis has improved. Patient denies fevers chills shortness of breath or chest pain. Patient does report mild nausea but no vomiting. Review of Systems Except as stated in HPI: all other systems reviewed are Neg Past Family Social History Allergies: Coded Allergies: *MDRO Multi-Drug Resistant Organism (Verified Adverse Reaction, Unknown, ) MRSA PCR screen (nares) POSITIVE - 05/09/16 MRSA (elbow) - 05/14/16 Past Medical History bipolar, anxiety/depression, polysubstance abuse, suicide times the past, chronic neck and back pain status post heart cervical fusion, migraine headaches , degenerative disc disease, COPD, seizure disorder, hypertension, , hyperlipidemia and recent diagnosis of left nondisplaced scaphoid fracture on 09/13/2016 also diagnosed with right lower extremely cellulitis 09/19/2016. Past Surgical History Cervical spine surgery Carpal tunnel release Reported Medications Keflex (Cephalexin) 500 Mg Cap 500 Mg PO Q6H 7 Days Ventolin Hfa 18 GM Inh (Albuterol Sulfate) 90 Mcg/Act Aer 2 Puff INH Q4H PRN Advair Diskus Inh (Fluticasone-Salmeterol Inh) 100-50 Mcg/Blist Aer 1 Puff INH BID Rinse mouth after use. Risperdal (Risperidone) 0.5 Mg Tab 0.5 Mg PO HS Tegretol (Carbamazepine) 200 Mg Tab 200 Mg PO BID Active Ordered Medications Current Medications Medications (Trade) Dose Ordered Sig/Jack Route Start Time Stop Time Status Last Admin (Tylenol) 650 mg Q4H PRN PO 09/22/16 21:30 (Milk Of Magnesia Liq) 30 ml DAILY PRN PO 09/22/16 21:30 (Mag-Al Plus Susp Liq) 30 ml Q6H PRN PO 09/22/16 21:30 (Proair Hfa Inh) 2 puff Q4HR PRN INH 09/22/16 21:30 (Keflex) 500 mg Q6H PO 09/23/16 00:00 09/26/16 23:59 09/23/16 12:21 (TEGretol) 200 mg BID PO 09/23/16 09:00 09/23/16 08:42 (Symbicort 80-4.5 Mcg Inh) 2 puff BID INH 09/23/16 09:00 (Bactrim Ds 800-160 Mg) 1 tab DAILY PO 09/23/16 09:00 09/26/16 08:59 09/23/16 08:44 (risperDAL) 1 mg BID PO 09/23/16 21:00 (Benadryl) 50 mg HS PRN PO 09/23/16 12:15 (Atarax) 50 mg Q6H PRN PO 09/23/16 12:15 (Cogentin) 1 mg Q12H PRN PO 09/23/16 12:15 (Cogentin Inj) 1 mg Q12H PRN IM 09/23/16 12:15 (Romazicon Inj) 0.2 mg Q1M PRN IV PUSH 09/23/16 12:15 (Ativan) 1 mg Q4H PRN PO 09/23/16 12:15 (Ativan Inj) 1 mg Q4H PRN IV PUSH 09/23/16 12:15 (Ativan) 2 mg Q2H PRN PO 09/23/16 12:15 09/23/16 13:06 (Ativan Inj) 2 mg Q2H PRN IV PUSH 09/23/16 12:15 (Ativan Inj) 2 mg Q1H PRN IV PUSH 09/23/16 12:15 (Ativan Inj) 2 mg Q15M PRN IV PUSH 09/23/16 12:15 Family History Mother secondary to lung cancer, father segment prostate cancer Social History Patient reports he smokes proximally one pack cigarettes per day Denies EtOH use denies illicit drug use Physical Exam Vital Signs Vital Signs Date Time Temp Pulse Resp B/P Pulse Ox O2 Delivery O2 Flow Rate FiO2 09/23/16 05:44 98.0 96 18 126/78 96 09/22/16 22:26 97.3 77 16 122/96 96 09/22/16 19:31 67 18 134/98 98 09/22/16 17:39 88 18 148/86 99 Room Air Physical Exam GENERAL: This is a 50-year-old male patient appears older than stated age SKIN: [place] leathery skin HEAD: Atraumatic. Normocephalic. No temporal or scalp tenderness. EYES: Extraocular motions intact. No scleral icterus. No injection or drainage. CARDIOVASCULAR: Regular rate and rhythm without murmurs, gallops, or rubs. RESPIRATORY: Clear to auscultation. Breath sounds equal bilaterally. No wheezes , rales, or rhonchi. GASTROINTESTINAL: Abdomen soft, non-tender, nondistended. MUSCULOSKELETAL: Extremities without clubbing, cyanosis, or edema. No joint tenderness, effusion, or edema noted. No calf tenderness. Negative Homans sign bilaterally. NEUROLOGICAL: Awake and alert. No focal deficits appreciated. Motor and sensory grossly within normal limits. Five out of 5 muscle strength in all muscle groups. Normal speech. Laboratory Laboratory Tests Test 09/23/16 08:25 Sodium Level 139 Potassium Level 3.9 Chloride Level 102 Carbon Dioxide Level 32.0 Anion Gap 5 Blood Urea Nitrogen 11 Creatinine 1.16 Estimat Glomerular Filtration 67 Rate Random Glucose 99 Uric Acid 4.1 Calcium Level 9.7 Phosphorus Level 3.0 Magnesium Level 2.2 Total Creatine Kinase 94 Triglycerides Level 125 Cholesterol Level 183 LDL Cholesterol 108 HDL Cholesterol 49.9 Cholesterol/HDL Ratio 3.66 Vitamin B12 Level 859 25-Hydroxy Vitamin D Total 29.1 Free Thyroxine 0.91 Thyroid Stimulating Hormone 0.312 3rd Gen Carbamazepine (Tegretol) Level LESS THAN 0.5 Result Diagram: 09/22/16 1620 09/23/16 0825 Assessment and Plan Assessment and Plan This is a 50-year-old male patient with past medical history which includes bipolar, anxiety/depression, polysubstance abuse, suicide times the past, chronic neck and back pain status post heart cervical fusion, migraine headaches , degenerative disc disease, COPD, seizure disorder, hypertension, hyperlipidemia and recent diagnosis of left nondisplaced scaphoid fracture on 09/13/2016 also diagnosed with right lower extremely cellulitis 09/19/2016. Patient is currently admitted to the inpatient psychiatric center we have been consulted for assistance with medical management included hypertension, cellulitis, seizure disorder, chronic pain and appropriate left arm. Patient treated in [place] emergency room 09/13/2016 diagnosed with a closed nondisplaced fracture of the left scaphoid splint was placed and patient recommended follow-up with hand surgery he has not done so Patient was also treated for cellulitis of right lower extremity on 09/19/2016 Bactrim and Keflex were started with a stop date of 09/26/2016. Bipolar anxiety/depression/suicide attempt management per psychiatric team Seizure disorder restart patient's Tegretol Tegretol level <0.05 Seizure precautions Chronic pain patient has recently overdosed on Lortab Unable to verify patient's OxyContin with pharmacy fracture of the left scaphoid- consult hand surgery Maintain splint Cellulitis right lower extremity continue Keflex and Bactrim was stopped date of 09/26/2016 Tobacco abuse encourage patient to abstain Nicotine patch [facility] protocol for withdrawal- per primary team DVT prophylaxis patient is a laboratory Plan of care discussed with patient RN and Dr. Perea Discussed Condition With The exam, history, and the medical decision-making described in the above note were completed with the assistance of the mid-level provider. I reviewed and agree with the findings presented. I attest that I had a [id number] encounter with the patient on the same day, and personally performed and documented my assessment and findings in the medical record. Marcia Mcarthur Sep 23, 2016 16:52 Lavell Perea MD Oct 02, 2016 14:25
[2016-09-23 18:38] VITALS: BP 109/59; PULSE 70; RESP 18; TEMP 98.3; O2SAT 97
[2016-09-23 19:50] VITALS: BP 131/73; PULSE 75; RESP 19; TEMP 99; O2SAT 97
[2016-09-23] MEDS: risperiDONE 1 MG TAB PO SCH (19:52)
[2016-09-23] MEDS: ACETAMINOPHEN 325 MG TAB PO PRN (20:03)
[2016-09-23] MEDS: REMOVE OLD NICODERM (NICOTINE) PATCH TD SCH (21:00)
[2016-09-23] MEDS ORDERED: risperiDONE 0.5 MG TAB PO SCH (21:00)
[2016-09-23] MEDS: LORazepam 1 MG TAB PO PRN (22:14)
[2016-09-23] MEDS: diphenhydrAMINE HCL 50 MG CAP PO PRN (22:14)
[2016-09-24 04:38] VITALS: BP 139/78; PULSE 55; RESP 16; TEMP 98.7; O2SAT 99
[2016-09-24] MEDS: CEPHALEXIN MONOHYDRATE 500 MG CAP PO SCH ×3 (05:55→18:00)
[2016-09-24] MEDS: risperiDONE 1 MG TAB PO SCH ×2 (08:57→20:28)
[2016-09-24] MEDS: SULFAMETHOXAZOLE-TRIMETHOPRIM DS 800-160 MG TAB PO SCH (08:57)
[2016-09-24] MEDS: carBAMazepine 200 MG TAB PO SCH ×2 (08:57→20:29)
[2016-09-24] MEDS: BUDESONIDE-FORMOTEROL 80/4.5 MCG INHALER INH SCH ×2 (08:57→20:28)
[2016-09-24] MEDS: NICOTINE 14 MG/24 HR PATCH TD SCH (09:00)
[2016-09-24 09:26] LABS: HEMOGLOBIN A1a 1.2 %; HEMOGLOBIN A1b 1.6 %; HEMOGLOBIN Ao 84.8 %; HEMOGLOBIN LA1C 2.2 %; HEMOGLOBIN P3 3.9 %
[2016-09-24] MEDS: LORazepam 1 MG TAB PO PRN ×2 (09:32→14:40)
[2016-09-24] MEDS ORDERED: ACETAMINOPHEN/HYDROcodone 325 MG/5 MG TAB PO PRN (10:30)
--- NOTE | 2016-09-24 11:11 | HHI.PR ---
Subjective Remarks Follow-up: Seizure disorder, Fracture of the left scaphoid, Cellulitis right lower extremity. Patient removed his splint from left thumb last night. Patient reports the pain was so bad that he thought if he took the splint off it would feel better. The splint was replaced by [employer] overnight. X-ray pending Patient complaining of 10 out of 10 severe pain in the left wrist/hand area. Patient reports the pain has been this way intermittently since he originally fracture it September 13, 2016. Patient denies fevers chills nausea vomiting diarrhea constipation shortness of breath or chest pain Objective Vitals Vital Signs Date Time Temp Pulse Resp B/P Pulse Ox O2 Delivery O2 Flow Rate FiO2 09/24/16 04:38 98.7 55 16 139/78 99 09/23/16 19:50 99.0 75 19 131/73 97 09/23/16 18:38 98.3 70 18 109/59 97 Result Diagram: 09/22/16 1620 09/23/16 0825 Objective Remarks GENERAL: This is a 50-year-old male patient appears older than stated age SKIN: [place] leathery skin HEAD: Atraumatic. Normocephalic. No temporal or scalp tenderness. EYES: Extraocular motions intact. No scleral icterus. No injection or drainage. CARDIOVASCULAR: Regular rate and rhythm without murmurs, gallops, or rubs. RESPIRATORY: Clear to auscultation. Breath sounds equal bilaterally. No wheezes , rales, or rhonchi. GASTROINTESTINAL: Abdomen soft, non-tender, nondistended. MUSCULOSKELETAL: Extremities without clubbing, cyanosis, or edema. No joint tenderness, effusion, or edema noted. No calf tenderness. Negative Homans sign bilaterally. Splint to left hand/wrist NEUROLOGICAL: Awake and alert. No focal deficits appreciated. Motor and sensory grossly within normal limits. Five out of 5 muscle strength in all muscle groups, with the exception of left hand/wrist splint in place. Normal speech. A/P Assessment and Plan This is a 50-year-old male patient with past medical history which includes bipolar, anxiety/depression, polysubstance abuse, suicide times the past, chronic neck and back pain status post heart cervical fusion, migraine headaches , degenerative disc disease, COPD, seizure disorder, hypertension, hyperlipidemia and recent diagnosis of left nondisplaced scaphoid fracture on 09/13/2016 also diagnosed with right lower extremely cellulitis 09/19/2016. Patient is currently admitted to the inpatient psychiatric center we have been consulted for assistance with medical management included hypertension, cellulitis, seizure disorder, chronic pain and appropriate left arm. Patient treated in [place] emergency room 09/13/2016 diagnosed with a closed nondisplaced fracture of the left scaphoid splint was placed and patient recommended follow-up with hand surgery he has not done so Patient was also treated for cellulitis of right lower extremity on 09/19/2016 Bactrim and Keflex were started with a stop date of 09/26/2016. Bipolar anxiety/depression/suicide attempt management per psychiatric team Seizure disorder restart patient's Tegretol Tegretol level <0.05 Seizure precautions Fracture of the left scaphoid- consult hand surgery- Dr. Cole who is on-call called nursing station reports he's reviewed films and case does not feel this needs to be seen urgently. Recommend Follow up with Dr. Smiley as patient is known to her. Maintain splint Patient removed his splint from left thumb last night. Patient reports the pain was so bad that he thought if he took the splint off it would feel better. The splint was replaced by [employer] overnight. X-ray pending Patient has had recent overdose on opioids- therefore acetaminophen as needed for pain Cellulitis right lower extremity continue Keflex and Bactrim was stopped date of 09/26/2016 Tobacco abuse encourage patient to abstain Nicotine patch CIWA protocol for withdrawal- per primary team DVT prophylaxis patient is a laboratory TSH borderline low. T4 within normal limits. Free T3 is likely low, but is inaccurate test. Expect total T3 would be normal nonetheless. TSH could be easily altered in the setting of stress, anxiety. Patient will need to follow- up with primary care as outpatient. Plan of care discussed with patient RN and . Marcia Noble Sep 24, 2016 11:11 Lavell Perea MD Sep 24, 2016 20:04
--- NOTE | 2016-09-24 11:33 | HHI.PYPN ---
Subjective Remarks Patient was seen and case discussed with nursing. Nursing says his CIWA is 10 because of anxiety. However for my interview he has no tremors, he is alert and oriented 4, is not confused, there are no auditory visual hallucinations, there is no nausea or vomiting, and vital signs are within range. Patient is seeking opiates for our interview. Minimizes his history of drug use. Denies suicidal ideations thought content or plan. 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 Ordered T3-T4, consider medicine consult Justification for Cont. Inpt. Patient will decompensate in a less restrictive setting Request HC Surrog/Guard Advoc?: No Jax Peres DO Sep 24, 2016 11:33
[2016-09-24] MEDS: hydrOXYzine HCL 50 MG TAB PO PRN ×2 (12:52→20:28)
[2016-09-24 15:27] LABS: FREE T3 1.97 PG/ML (2.18-3.98); THYROXINE (T4) 5.3 MCG/DL (4.5-12.1)
[2016-09-24 18:57] VITALS: BP 150/86; PULSE 78; RESP 16; TEMP 97.6; O2SAT 99
[2016-09-24] MEDS: ACETAMINOPHEN 325 MG TAB PO PRN (20:29)
[2016-09-24] MEDS: diphenhydrAMINE HCL 50 MG CAP PO PRN (20:29)
--- NOTE | 2016-09-24 20:43 | RADRPT ---
EXAM DATE/TIME: 09/24/2016 19:29 [place] COMPARISON: WRIST LEFT COMPLETE ([id number]), September 13, 2016, 10:38. INDICATIONS : Left hand pain MEDICAL HISTORY : Hypertension. Hypercholesterolemia. Chronic obstructive pulmonary disease. SURGICAL HISTORY : Fusion, cervical. ENCOUNTER: Subsequent ACUITY: 2 weeks PAIN SCORE: 8/10 LOCATION: Left upper extremity FINDINGS: Cast is present. There is a probable nondisplaced fracture of the distal carpal navicular. No disloca tion. No other fractures are seen. CONCLUSION: 1. Nondisplaced fracture of the distal navicular. Ilia Yoder MD on September 24, 2016 at 20:39 Board Certified Radiologist. This report was verified electronically.
[2016-09-24] MEDS: REMOVE OLD NICODERM (NICOTINE) PATCH TD SCH (21:00)
[2016-09-25] MEDS: CEPHALEXIN MONOHYDRATE 500 MG CAP PO SCH ×2 (01:22→05:47)
[2016-09-25 05:10] VITALS: BP 122/69; PULSE 58; RESP 18; TEMP 97.9; O2SAT 98
[2016-09-25] MEDS ORDERED: BACT800T5 PO (08:54)
[2016-09-25] MEDS ORDERED: RISP1 PO (08:54)
--- NOTE | 2016-09-25 08:55 | HHI.DS ---
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 Flores is a 50-year-old male with a reported history of schizophrenia who presents voluntarily for psychiatric evaluation. Reviewing the ED provider notes I see that the patient took a quantity of Lortab yesterday for unclear reasons and has been nonadherent with his antiepileptics. Reviewing the electronic medical record, I note the patient was seen most recently by Dr. Soriano in May of last year. Patient seen and examined with nurse. Chart reviewed. Case discussed with nursing staff. On my examination today, the patient reports that he has been feeling more depressed recently related to the upcoming anniversary of his ' s passing. He feels very guilty because his by overdose when the 2 were using drugs together. He says "I'm over the suicide trip" and denies suicidal ideation or homicidal ideation at this time. He does report that his sleep is disrupted. He feels hopeless about the future. He reports hearing the voice of his who is occasionally deprecatory but noncommanding. No hypomanic or manic symptoms noted. No evident delusional beliefs. Patient does complain of some unrealized anxiety. The remainder of the psychiatric ROS is negative. Past psychiatric history: Patient reports prior diagnosis of schizophrenia. He says that he has done well in the past on Risperdal and BuSpar. He is not currently under the care of a psychiatrist. He reports his most recent psychiatric admission was here at [place]. He reports multiple prior suicide attempts in the past. Family history: Patient reports a nonspecific family history of mental illness noting that there is a lot of "craziness" in his family. He denies any family history of suicide. Chemical dependency history: Patient admits to a history of abuse of narcotic pain medication but denies any recent substance abuse. His toxicology is positive for cannabinoids and benzodiazepines. I did review his controlled substances database report and note extensive multisourcing of prescribers. Most recently he was prescribed oxycodone and Valium on February 6, 90 tabs of each for a 30 day supply. Social history: Patient reports that he lives alone. His is and he has 4 children but no grandchildren. He has his GED. He is on disability. Denies any or legal history. Denies any access to guns or firearms. Denies any catholic or spiritual beliefs. Tobacco Use In Past 30 Days: 5 or More Cigarettes/Day Alcohol Use: Never Hospital Course Patient was admitted to a locked, inpatient psychiatric unit. A general medical consultation was obtained. Appropriate precautions were in place throughout patient's hospital stay. Patient was seen and examined daily on the unit by psychiatry and also visited by counselor. Medications were adjusted. Patient tolerated medications well without side effects. There was no evidence of any suicidality or homicidality on the inpatient unit. Patient was noted to be quite medication seeking, particularly for opiate pain medications, and he did at one point act out by removing his cast from his left forearm in order to try to obtain opiates. Reviewing the electronic medical record, I note that the patient is sleeping and eating well. His CIWA score for the last 3 checks has been 0. He has completed a right of release. On the day of discharge: Patient seen and examined with nurse. Chart reviewed. Case discussed with nursing staff who reports patient is denying suicidal ideation and remains quite medication seeking for opiates. On my examination today, the patient reports that the Risperdal is helping to "mellow me out." He denies any suicidal ideation or homicidal ideation. He denies any audiovisual hallucinations. He remains quite medication seeking for opiates and says that this was the main purpose for which she came into the hospital. I explain the findings from the controlled substances database report. Patient denies any side effects from medications. He continues to request discharge from the inpatient psychiatric unit today. Given that the patient is denying suicidal and homicidal ideation and there has been no evidence of either on the inpatient unit and given that the patient appears to be attending to his basic needs, I have no basis to retain the patient involuntarily at this time. I have performed suicide and violence risk assessment on day of discharge weighing the acute, chronic, and protective factors and determined that he is at low imminent risk, although there is a component of risk for retributive self -harm since his primary goal in coming into the hospital, obtaining opiates, has been frustrated. This risk would not be ameliorated by a lengthy her hospital stay, and I have endeavored to manage this risk by prescribing him the smallest quantity of medications consistently good care. I have strongly recommended that the patient remain on the inpatient psychiatric unit but given that he is insisting on discharge today and I have no basis to retain the patient involuntarily at this time I will discharge him AGAINST MEDICAL ADVICE. Patient follow-up psychiatrically as arranged by counselor. Patient follow- up with primary care and also hand surgery as recommended by hospitalist. If patient is willing to wait, I will ask the hospitalist to evaluate the patient today and make discharge recommendations. Patient to return to the psychiatric emergency room for any concerning psychiatric symptoms. Results Blood Pressure 122 / 69 Vital Signs Date Time Temp Pulse Resp B/P Pulse Ox O2 Delivery O2 Flow Rate FiO2 09/25/16 05:10 97.9 58 18 122/69 98 09/22/16 17:39 Room Air Laboratory Tests Test 09/22/16 09/22/16 09/23/16 09/24/16 16:15 16:20 08:25 14:28 Urine Ketones TRACE mg/dL (NEG) Urine Benzodiazepines Screen POS (NEG) Urine Cannabinoids Screen POS (NEG) White Blood Count 11.9 TH/MM3 (4.0-11.0) Neutrophils (%) (Auto) 70.5 % (16.0-70.0) Neutrophils # (Auto) 8.4 TH/MM3 (1.8-7.7) Estimat Glomerular Filtration 80 ML/MIN (>89) 67 ML/MIN (>89) Rate Acetaminophen Level LESS THAN 2.0 MCG/ML (10.0-30.0) Carbamazepine (Tegretol) Level LESS THAN 0.5 LESS THAN 0.5 MCG/ML MCG/ML (4.0-12.0) (4.0-12.0) LDL Cholesterol 108 MG/DL (0-99) 25-Hydroxy Vitamin D Total 29.1 ng/ML (30-100) Thyroid Stimulating Hormone 0.312 uIU/ML 3rd Gen (0.358-3.740) Free Triiodothyronine (T3) 1.97 PG/ML pg/dL (2.18-3.98) Laboratory Results Test 09/23/16 08:25 Hemoglobin A1c 5.7 % (4.3-6.0) Triglycerides Level 125 MG/DL (42-150) Cholesterol Level 183 MG/DL (120-200) LDL Cholesterol 108 MG/DL (0-99) HDL Cholesterol 49.9 MG/DL (40.0-60.0) Summary of Procedures None done Imaging Last Impressions Hand X-Ray 09/24/16 0000 Signed Impressions: Service Date/Time: Saturday, September 24, 2016 19:29 - CONCLUSION: 1. Nondisplaced fracture of the distal navicular. Ilia Yoder MD Pending results at discharge: No Medications # of Antipsychotic meds at D/C: 1 Approp Antipsych med options 1 - Minimum of three failed multiple trials of monotherapy. 2 - Documented plan to taper to monotherapy due to previous use of multiple meds OR cross-taper in progress at D/C. 3 - Documentation of augmentation of Clozapine. 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 He is fairly well groomed and maintaining basic hygiene. He is awake and alert and oriented to person and hospital at least. No evidence of delirium. No abnormal motor movements noted. Language and fund of knowledge seemed average. Mood remains a little dysphoric and affect blunted , but he does not appear severely depressed. Thought process linear. No loosening of associations. No evident delusions. Denies audiovisual hallucinations. Denies suicidal or homicidal ideation. Insight and judgment are fair at best. Pt Condition on Discharge: Guarded (AGAINST MEDICAL ADVICE discharge) Discharge Disposition: Discharge Home Discharge Instructions Diet Instructions: Heart Healthy Diet Activities you can perform: Weight Bearing as [place] Scheduled Appointment: as per counselor's notes New Medications: Risperidone (Risperdal) 1 Mg Tab 1 MG PO BID Mental Health Days 5 Ref 5 TAB Sulfamethoxazole-Trimethoprim (Bactrim DS) 800-160 Mg Tab 1 TAB PO DAILY Antibiotic Days 2 Ref 0 TAB Continued Medications: Albuterol 18 GM Inh (Ventolin Hfa 18 GM Inh) 90 Mcg/Act Aer 2 PUFF INH Q4H PRN SHORTNESS OF BREATH #1 Ref 0 INHALER Carbamazepine (Tegretol) 200 Mg Tab 200 MG PO BID #60 Ref 0 TAB Cephalexin (Keflex) 500 Mg Cap 500 MG PO Q6H Infection Days 7 Ref 0 CAP Fluticasone-Salmeterol Inh (Advair Diskus Inh) 100-50 Mcg/Blist Aer 1 PUFF INH BID Rinse mouth after use. 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 Bhavesh Lopez at Smoking is Dangerous to Your Health. Avoid second hand smoking Bhavesh Lopez MD Sep 25, 2016 08:55
[2016-09-25] MEDS: carBAMazepine 200 MG TAB PO SCH (08:58)
[2016-09-25] MEDS: risperiDONE 1 MG TAB PO SCH (08:58)
[2016-09-25] MEDS: SULFAMETHOXAZOLE-TRIMETHOPRIM DS 800-160 MG TAB PO SCH (08:58)
[2016-09-25] MEDS: BUDESONIDE-FORMOTEROL 80/4.5 MCG INHALER INH SCH (09:00)
[2016-09-25] MEDS: NICOTINE 14 MG/24 HR PATCH TD SCH (09:00)
== END 2016-09-25 11:30 | disposition left against medical advice (07) | DRG 897 ==
LOC: PHEFT 15:37 → NEDA 21:43 → H260 22:24
PROVIDERS: ADMIT Psychiatry & Neurology Psychiatry; ATTEND Psychiatry & Neurology Psychiatry
DX: F19.14 Other psychoactive substance abuse with psychoactive substance-induced mood disorder (principal); L03.115 Cellulitis of right lower limb; I10 Essential (primary) hypertension; G40.909 Epilepsy, unspecified, not intractable, without status epilepticus; G89.29 Other chronic pain; J44.9 Chronic obstructive pulmonary disease, unspecified; F20.9 Schizophrenia, unspecified; F31.9 Bipolar disorder, unspecified; F17.210 Nicotine dependence, cigarettes, uncomplicated; E78.5 Hyperlipidemia, unspecified; S62.015D Nondisplaced fracture of distal pole of navicular [scaphoid] bone of left wrist, subsequent encounter for fracture with routine healing; Z86.14 Personal history of Methicillin resistant Staphylococcus aureus infection; Z91.5 Personal history of self-harm
CPT/HCPCS: 73130; 80048; 80053; 80061; 80156; 80307; 80320; 80329; 81001; 82306; 82550; 82607; 83036; 83735; 84100; 84436; 84439; 84443; 84481; 84550; 85025; 86592; 93005; 99281; G0480; Q0163

== ENCOUNTER 2016-10-01 01:16 | Emergency (ER) | payer MEDICARE, OTHER ==
[~2016-10-01] VITALS: Ht 177.8 cm; Wt 68.0 kg
[~2016-10-01 01:16] MED LIST changes: -GABA100C4 PO; -OXYC-396 PO; -RISP0.5T20 PO; +RISP1 PO
[2016-10-01 01:24] LABS: MEAN CORPUSCULAR HGB CONC 36.7 % (32.0-36.0)
[2016-10-01 01:27] VITALS: BP 137/82; PULSE 83; RESP 16; TEMP 98.5; O2SAT 98
[2016-10-01] MEDS ORDERED: ONDANSETRON HCL 4 MG/2 ML VIAL IV PUSH ONE (01:45)
[2016-10-01 01:50] LABS: AUTOMATED NEUTROPHIL # 9.5 TH/MM3 (1.8-7.7); BASOPHIL # 0.1 TH/MM3 (0-0.2); BASOPHIL % 0.6 % (0.0-2.0); EOSINOPHIL # 0.1 TH/MM3 (0-0.4); EOSINOPHIL % 0.9 % (0.0-4.0); HEMATOCRIT 42.3 % (39.0-51.0); LYMPH % 28.2 % (9.0-44.0); LYMPHOCYTE # 4.2 TH/MM3 (1.0-4.8); MEAN CORPUSCULAR HEMOGLOBIN 32.3 PG (27.0-34.0); NEUT % 64.3 % (16.0-70.0); PLATELET COUNT 355 TH/MM3 (150-450); RED BLOOD COUNT 4.81 MIL/MM3 (4.50-5.90); RED CELL DISTRIBUTION WIDTH 14.1 % (11.6-17.2); WHITE BLOOD COUNT 14.7 TH/MM3 (4.0-11.0)
--- NOTE | 2016-10-01 01:51 | PD ---
HPI Chief Complaint: Psychiatric Symptoms Time Seen by Provider: 01:50 Travel History International Travel<30 days: No Contact w/Intl Traveler<30days: No Traveled to known affect area: No History of Present Illness HPI Patient comes emergency Department under a [place] act by police for making suicidal statements. Patient states he was wanting to kill himself by jumping off a bridge. Patient states he tried to commit suicide in the past by overdosing. Denies any homicidal ideations. Patient only medical concern is nausea currently. Denies chest pain, shortness of breath, fevers, abdominal pain, or headaches. PFSH Past Medical History Hx Anticoagulant Therapy: No ADHD: Yes Arthritis: No Asthma: No Autoimmune Disease: No Blood Disorders: No Bipolar Disorder: Yes Anxiety: Yes Depression: Yes Heart Rhythm Problems: No Cancer: No Cardiovascular Problems: Yes (htn on meds) High Cholesterol: Yes Chest Pain: No Congestive Heart Failure: No COPD: Yes Cystic Fibrosis: No Diminished Hearing: No Endocrine: No Gastrointestinal Disorders: No Genitourinary: No Headaches: No Herniated Disk: Yes Hypertension: Yes Immune Disorder: No Implanted Vascular Access Dvce: No Insomnia: Yes Musculoskeletal: Yes Neurologic: Yes (NEUROPATHY) Psychiatric: Yes (Hx of treatment for Bipolar Disorder) Reproductive: No Respiratory: Yes (copd) Integumentary: Yes (HX MRSA FROM WOUND INFECTION- LEFT LEG ) Immunizations Current: Yes Migraines: Yes Seizures: Yes Tetanus Vaccination: < 5 Years Influenza Vaccination: Yes PNEUMOCCOCAL Vaccine (Year): 1 Past Surgical History Abdominal Surgery: No Cardiac Surgery: No Ear Surgery: No Endocrine Surgery: No Eye Surgery: No Genitourinary Surgery: No Gynecologic Surgery: No Neurologic Surgery: Yes (CERVICAL FUSION) Oral Surgery: No Pacemaker: No Thoracic Surgery: No Other Surgery: Yes ( CARPAL TUNNEL SURGERY BILAT) Social History Alcohol Use: No (denies) Tobacco Use: Yes (1 PPD) Substance Use: Yes (+THC AND BENZOS) Allergies-Medications (Allergen,Severity, Reaction): Coded Allergies: *MDRO Multi-Drug Resistant Organism (Verified Adverse Reaction, Unknown, ) MRSA PCR screen (nares) POSITIVE - 05/09/16 MRSA (elbow) - 05/14/16 Reported Meds & Prescriptions Reported Meds & Active Scripts Active Risperdal (Risperidone) 1 Mg Tab 1 Mg PO BID 5 Days Reported Tegretol (Carbamazepine) 200 Mg Tab 200 Mg PO BID Review of Systems Except as stated in HPI: all other systems reviewed are Neg Physical Exam Narrative GENERAL: Well-developed, well nourished, in no acute distress, and non-ill appearing. SKIN: Warm and dry. HEAD: Atraumatic. Normocephalic. EYES: Pupils equal and round. EOMI. No scleral icterus. No injection or drainage. ENT: No nasal bleeding or discharge. Mucous membranes pink and moist. NECK: Trachea midline. Supple. No nuclear rigidity. CARDIOVASCULAR: Regular rate and rhythm. No murmur appreciated. RESPIRATORY: No accessory muscle use. No respiratory distress. Clear to auscultation. Breath sounds equal bilaterally. MUSCULOSKELETAL: No obvious deformities. No clubbing. No cyanosis. No edema. Full range of motion. NEUROLOGICAL: Awake and alert. No obvious cranial nerve deficits. Motor grossly within normal limits. Normal speech. PSYCHIATRIC: Appropriate mood and affect. Data Data Last Documented VS Vital Signs Date Time Temp Pulse Resp B/P Pulse Ox O2 Delivery O2 Flow Rate FiO2 10/01/16 01:30 16 10/01/16 01:27 98.5 83 137/82 98 Orders Complete Blood Count With Diff (10/01/16 01:22) Comprehensive Metabolic Panel (10/01/16 01:22) Psych Screen (10/01/16 01:22) Drug Screen, Random Urine (10/01/16 01:22) Alcohol (Ethanol) (10/01/16 01:22) Salicylates (Aspirin) (10/01/16 01:22) Tylenol (Acetaminophen) (10/01/16 01:22) Ondansetron Inj (Zofran Inj) (10/01/16 01:45) Labs Laboratory Tests Test 10/01/16 10/01/16 01:41 01:45 White Blood Count 14.7 TH/MM3 Red Blood Count 4.81 MIL/MM3 Hemoglobin 15.5 GM/DL Hematocrit 42.3 % Mean Corpuscular Volume 88.0 FL Mean Corpuscular Hemoglobin 32.3 PG Mean Corpuscular Hemoglobin 36.7 % Concent Red Cell Distribution Width 14.1 % Platelet Count 355 TH/MM3 Mean Platelet Volume 7.9 FL Neutrophils (%) (Auto) 64.3 % Lymphocytes (%) (Auto) 28.2 % Monocytes (%) (Auto) 6.0 % Eosinophils (%) (Auto) 0.9 % Basophils (%) (Auto) 0.6 % Neutrophils # (Auto) 9.5 TH/MM3 Lymphocytes # (Auto) 4.2 TH/MM3 Monocytes # (Auto) 0.9 TH/MM3 Eosinophils # (Auto) 0.1 TH/MM3 Basophils # (Auto) 0.1 TH/MM3 CBC Comment AUTO DIFF Differential Comment AUTO DIFF CONFIRMED Platelet Estimate NORMAL Platelet Morphology Comment NORMAL Red Cell Morphology Comment NORMAL Sodium Level 135 MEQ/L Potassium Level 3.8 MEQ/L Chloride Level 98 MEQ/L Carbon Dioxide Level 26.5 MEQ/L Anion Gap 11 MEQ/L Blood Urea Nitrogen 19 MG/DL Creatinine 1.09 MG/DL Estimat Glomerular Filtration 72 ML/MIN Rate Random Glucose 116 MG/DL Calcium Level 9.7 MG/DL Total Bilirubin 0.3 MG/DL Aspartate Amino Transf 25 U/L (AST/SGOT) Alanine Aminotransferase 29 U/L (ALT/SGPT) Alkaline Phosphatase 113 U/L Total Protein 8.2 GM/DL Albumin 4.3 GM/DL Salicylates Level 3.8 MG/DL Acetaminophen Level LESS THAN 2.0 MCG/ML Ethyl Alcohol Level LESS THAN 3 MG/DL Urine Opiates Screen NEG Urine Barbiturates Screen NEG Urine Amphetamines Screen NEG Urine Benzodiazepines Screen POS Urine Cocaine Screen NEG Urine Cannabinoids Screen POS MDM Medical Decision Making Medical Screen Exam Complete: Yes Emergency Medical Condition: Yes Differential Diagnosis Suicidal, homicidal, alcohol intoxication, drug intoxication, depression, other Narrative Course Patient was seen and examined. Labs were obtained and reviewed. I suspect slightly elevated white blood cell count is stress-induced. Patient medically cleared for further treatment and evaluation by psych. Final disposition per psych. Diagnosis Primary Impression: Suicidal ideations Condition: Stable Nathan Henderson Oct 01, 2016 01:51
[2016-10-01 01:55] LABS: HEMO FLAGS AUTO DIFF
[2016-10-01 02:03] LABS: AMPHETAMINE, URINE NEG (NEG); BARBITURATES, URINE NEG (NEG); COCAINE, URINE NEG (NEG)
[2016-10-01 02:12] LABS: ANION GAP 11 MEQ/L (5-15)
[2016-10-01 02:20] LABS: ALKALINE PHOSPHATASE 113 U/L (45-117); ALT (GPT) 29 U/L (12-78); AST (GOT) 25 U/L (15-37); BICARBONATE 26.5 MEQ/L (21.0-32.0); BLOOD UREA NITROGEN 19 MG/DL (7-18); CHLORIDE 98 MEQ/L (98-107); GLOMERULAR FILTRATION RATE 72 ML/MIN (>89); POTASSIUM 3.8 MEQ/L (3.5-5.1); SODIUM (NA) 135 MEQ/L (136-145); TOTAL BILIRUBIN ADULT 0.3 MG/DL (0.2-1.0)
[2016-10-01 02:22] LABS: PLATELET ESTIMATE SMEAR NORMAL (NORMAL); PLATELET MORPHOLOGY NORMAL (NORMAL); SCAN/DIFF AUTO DIFF CONFIRMED
[2016-10-01 02:26] LABS: ACETAMINOPHEN LESS THAN 2.0 MCG/ML (10.0-30.0)
[2016-10-01 06:25] VITALS: BP 136/101; PULSE 82; RESP 18; O2SAT 97
[2016-10-01 10:00] VITALS: BP 153/101; PULSE 78; RESP 18
[2016-10-01 14:41] VITALS: BP 138/79; PULSE 86; RESP 18; O2SAT 97
[2016-10-01 17:41] VITALS: BP 159/104; PULSE 95; RESP 20; O2SAT 93
[2016-10-01] MEDS ORDERED: carBAMazepine 200 MG TAB PO ONE (18:00)
[2016-10-01] MEDS ORDERED: risperiDONE 1 MG TAB PO ONE (18:00)
[2016-10-01] MEDS: risperiDONE 1 MG TAB PO SCH (18:44)
[2016-10-01] MEDS: carBAMazepine 200 MG TAB PO SCH (18:44)
--- NOTE | 2016-10-01 19:18 | PD ---
History of Present Illness Chief Complaint: Psychiatric Symptoms Time Seen by Provider: 17:00 Travel History International Travel<30 Days: No Contact w/Intl Traveler<30days: No Known affected area: No Legal Status Legal Status: Hughes Act Hughes Act Signed By: Mayelin Nazario History of Present Illness: History of Present Illness HPI Patient is a 50 year old male with history of substance induced mood disorder who comes emergency Department under a Hughes act initiated by by police. The patient called 911 to inform them that [place] was [place] and that he was upset. He informed the police that he had intentions of jumping off the bridge. Patient was released from inpatient psychiatric unit last week and he was under the care of Dr. Lopez. He reports that he stopped taking his prescribed medication , Risperdal, because he felt it was not helping him. His current toxicology screen is positive for benzos as well as cannabinoids The patient was monitored in [facility] where he has been calm with no behavioral concerns. When I attempt to interview him he becomes agitated and begins to yell loudly " I am fucking going to jump off the bridge once you fucking let me go. So just let me go". I was unable to complete this evaluation as he continued to escalate. he then began to yell at other staff with out any provocation or staff initiating any contact with him. He did not appear to be responding to internal stimuli. He was demanding to be admitted as he stated " I have Medicare and you have to admit me or send me someplace else". He demanded to have his Tegretol but refused the Risperdal. [facility] Past Medical History Hx Anticoagulant Therapy: No ADHD: Yes Arthritis: No Asthma: No Autoimmune Disease: No Blood Disorders: No Bipolar Disorder: Yes Anxiety: Yes Depression: Yes Heart Rhythm Problems: No Cancer: No Cardiovascular Problems: Yes (htn on meds) High Cholesterol: Yes Chest Pain: No Congestive Heart Failure: No COPD: Yes Cystic Fibrosis: No Diminished Hearing: No Endocrine: No Gastrointestinal Disorders: No Genitourinary: No Headaches: No Herniated Disk: Yes Hypertension: Yes Immune Disorder: No Implanted Vascular Access Dvce: No Insomnia: Yes Musculoskeletal: Yes Neurologic: Yes (NEUROPATHY) Psychiatric: Yes (Hx of treatment for Bipolar Disorder) Reproductive: No Respiratory: Yes (copd) Integumentary: Yes (HX MRSA FROM WOUND INFECTION- LEFT LEG ) Immunizations Current: Yes Migraines: Yes Seizures: Yes Tetanus Vaccination: < 5 Years Influenza Vaccination: Yes PNEUMOCCOCAL Vaccine (Year): 1 Past Surgical History Abdominal Surgery: No Cardiac Surgery: No Ear Surgery: No Endocrine Surgery: No Eye Surgery: No Genitourinary Surgery: No Gynecologic Surgery: No Neurologic Surgery: Yes (CERVICAL FUSION) Oral Surgery: No Pacemaker: No Thoracic Surgery: No Other Surgery: Yes ( CARPAL TUNNEL SURGERY BILAT) Psychiatric History Psychiatric History Hx Psychiatric Treatment: [facility], LAST ADMISSION WAS ON: 09/22/16--09/25/16 History of Inpatient Treatment: Yes Guns or firearms in home: No Social History Hx Alcohol Use: No (denies) Hx Tobacco Use: Yes (1 PPD) Hx Substance Use: Yes (+THC, BENZOS, ALCOHOL) Substance Use Type: Alcohol, Marijuana, Nicotine/Cigarettes Other Substances Used: PT REPORTS USING MARIJUANA DAILY Hx of Substance Use Treatment: No Family Psychiatric History none obtained Allergies-Medications (Allergen,Severity, Reaction): Coded Allergies: *MDRO Multi-Drug Resistant Organism (Verified Adverse Reaction, Unknown, ) MRSA PCR screen (nares) POSITIVE - 05/09/16 MRSA (elbow) - 05/14/16 Reported Meds & Prescriptions Reported Meds & Active Scripts Active Risperdal (Risperidone) 1 Mg Tab 1 Mg PO BID 5 Days Reported Tegretol (Carbamazepine) 200 Mg Tab 200 Mg PO BID Review of Systems ROS Limitations: Uncooperative Exam Exam Limitations: Uncooperative Alert: Yes [place]: Person (o) Mood: Agitated Speech: Clear, Logical Suicidal: Ideation (reports intent to jump off a bridge) Insight/Judgement poor. poor MDM Medical Decision Making Medical Record Reviewed: Yes Assessment/Plan Remain on BA status. Patient with recent discharge from IPU and poor compliance with medications upon discharge. Patient has been discussed with the [facility] for possible admission as no beds available on [address] unit and patient is presenting in agitated manner. Orders Complete Blood Count With Diff (10/01/16 01:22) Comprehensive Metabolic Panel (10/01/16 01:22) Psych Screen (10/01/16 01:22) Drug Screen, Random Urine (10/01/16 01:22) Alcohol (Ethanol) (10/01/16 01:22) Salicylates (Aspirin) (10/01/16 01:22) Tylenol (Acetaminophen) (10/01/16 01:22) Ondansetron Inj (Zofran Inj) (10/01/16 01:45) Diet Regular Basic (10/01/16 Breakfast) Diet Regular Basic (10/01/16 Lunch) Diet Regular Basic (10/01/16 Dinner) Carbamazepine (Tegretol) (10/01/16 21:00) Risperidone (Risperdal) (10/01/16 21:00) Risperidone (Risperdal) (10/01/16 18:00) Carbamazepine (Tegretol) (10/01/16 18:00) Results Vital Signs Date Time Temp Pulse Resp B/P Pulse Ox O2 Delivery O2 Flow Rate FiO2 10/01/16 17:41 95 20 159/104 93 Room Air 10/01/16 14:41 86 18 138/79 97 Room Air 10/01/16 10:00 78 18 153/101 Room Air 10/01/16 06:25 82 18 136/101 97 Room Air 10/01/16 01:30 16 10/01/16 01:27 98.5 83 16 137/82 98 Laboratory Tests Test 10/01/16 10/01/16 01:41 01:45 White Blood Count 14.7 Red Blood Count 4.81 Hemoglobin 15.5 Hematocrit 42.3 Mean Corpuscular Volume 88.0 Mean Corpuscular Hemoglobin 32.3 Mean Corpuscular Hemoglobin 36.7 Concent Red Cell Distribution Width 14.1 Platelet Count 355 Mean Platelet Volume 7.9 Neutrophils (%) (Auto) 64.3 Lymphocytes (%) (Auto) 28.2 Monocytes (%) (Auto) 6.0 Eosinophils (%) (Auto) 0.9 Basophils (%) (Auto) 0.6 Neutrophils # (Auto) 9.5 Lymphocytes # (Auto) 4.2 Monocytes # (Auto) 0.9 Eosinophils # (Auto) 0.1 Basophils # (Auto) 0.1 CBC Comment AUTO DIFF Differential Comment AUTO DIFF CONFIRMED Platelet Estimate NORMAL Platelet Morphology Comment NORMAL Red Cell Morphology Comment NORMAL Sodium Level 135 Potassium Level 3.8 Chloride Level 98 Carbon Dioxide Level 26.5 Anion Gap 11 Blood Urea Nitrogen 19 Creatinine 1.09 Estimat Glomerular Filtration 72 Rate Random Glucose 116 Calcium Level 9.7 Total Bilirubin 0.3 Aspartate Amino Transf 25 (AST/SGOT) Alanine Aminotransferase 29 (ALT/SGPT) Alkaline Phosphatase 113 Total Protein 8.2 Albumin 4.3 Salicylates Level 3.8 Acetaminophen Level LESS THAN 2.0 Ethyl Alcohol Level LESS THAN 3 Urine Opiates Screen NEG Urine Barbiturates Screen NEG Urine Amphetamines Screen NEG Urine Benzodiazepines Screen POS Urine Cocaine Screen NEG Urine Cannabinoids Screen POS Diagnosis Primary Impression: Suicidal ideations Additional Impression: Other psychoactive substance abuse with psychoactive substance-induced mood disorder Condition: Stable Problem Qualifiers Kiera Neal Oct 01, 2016 19:18
[2016-10-01 22:00] VITALS: BP 129/82; PULSE 62; RESP 18; TEMP 98.6; O2SAT 97
[2016-10-02 02:23] VITALS: BP 130/81; PULSE 63; RESP 18; O2SAT 100
[2016-10-02 06:16] VITALS: BP 133/78; PULSE 65; RESP 18; TEMP 99; O2SAT 96
[2016-10-02] MEDS: risperiDONE 1 MG TAB PO SCH (08:58)
[2016-10-02] MEDS: carBAMazepine 200 MG TAB PO SCH (09:00)
== END 2016-10-02 09:14 ==
LOC: NEPA 01:16 → NEPJ 10-02 09:14
DX: R45.851 Suicidal ideations (principal); I10 Essential (primary) hypertension; E78.00 Pure hypercholesterolemia, unspecified; J44.9 Chronic obstructive pulmonary disease, unspecified; F17.210 Nicotine dependence, cigarettes, uncomplicated
CPT/HCPCS: 80053; 80307; 85025; 96374; 99284; J2405; 80320; 80329; G0480

== ENCOUNTER 2016-12-17 18:47 | Emergency (ER) | payer MEDICARE, OTHER ==
[~2016-12-17 18:47] MED LIST changes: -ADVA100A INH; -BACT800T5 PO; -CEPH-460 PO; -VENTAER INH
[2016-12-17 18:51] VITALS: BP 133/73; PULSE 86; RESP 20; TEMP 97.7; O2SAT 99
[2016-12-17] MEDS ORDERED: OXYC-396 PO (21:10)
[2016-12-17] MEDS ORDERED: VENTAER INH (21:10)
[2016-12-17] MEDS ORDERED: CEPH-460 PO (21:10)
[2016-12-17] MEDS ORDERED: CLON1TAB PO (21:10)
[2016-12-17] MEDS ORDERED: CIPR500T2 PO (21:10)
[2016-12-17] MEDS ORDERED: GABA600T PO (21:10)
[2016-12-17] MEDS ORDERED: CYCL1TAB29 PO (21:10)
[2016-12-17] MEDS ORDERED: HYDR25TA5 PO (21:10)
[2016-12-17] MEDS ORDERED: LEXA10TA PO (21:10)
[2016-12-17] MEDS ORDERED: DILA100C PO (21:10)
[2016-12-17] MEDS ORDERED: IPRAAER INH (21:10)
[2016-12-17] MEDS ORDERED: ADVA100A INH (21:10)
[2016-12-17] MEDS ORDERED: BUSP15TA PO (21:10)
[2016-12-17] MEDS ORDERED: DIAZ10TA PO (21:10)
[2016-12-17 21:24] LABS: BASOPHIL % 0.5 % (0.0-2.0); EOSINOPHIL # 0.2 TH/MM3 (0-0.4); EOSINOPHIL % 2.3 % (0.0-4.0); HEMATOCRIT 40.6 % (39.0-51.0); HEMO FLAGS DIFF FINAL; LYMPH % 29.3 % (9.0-44.0); LYMPHOCYTE # 2.8 TH/MM3 (1.0-4.8); MEAN CELL VOLUME 89.7 FL (80.0-100.0); MEAN CORPUSCULAR HEMOGLOBIN 30.1 PG (27.0-34.0); MEAN CORPUSCULAR HGB CONC 33.5 % (32.0-36.0); MONO % 4.7 % (0.0-8.0); NEUT % 63.2 % (16.0-70.0); PLATELET COUNT 274 TH/MM3 (150-450); RED BLOOD COUNT 4.53 MIL/MM3 (4.50-5.90); RED CELL DISTRIBUTION WIDTH 13.3 % (11.6-17.2); WHITE BLOOD COUNT 9.4 TH/MM3 (4.0-11.0)
[2016-12-17 21:41] LABS: AMPHETAMINE, URINE NEG (NEG); BARBITURATES, URINE NEG (NEG); COCAINE, URINE POS (NEG)
[2016-12-17 21:49] LABS: ANION GAP 8 MEQ/L (5-15); AST (GOT) 63 U/L (15-37); BICARBONATE 29.6 MEQ/L (21.0-32.0); BLOOD UREA NITROGEN 9 MG/DL (7-18); CHLORIDE 102 MEQ/L (98-107); GLOMERULAR FILTRATION RATE 77 ML/MIN (>89); POTASSIUM 3.7 MEQ/L (3.5-5.1); SODIUM (NA) 140 MEQ/L (136-145)
[2016-12-17 21:52] LABS: ACETAMINOPHEN LESS THAN 2.0 MCG/ML (10.0-30.0); ALKALINE PHOSPHATASE 119 U/L (45-117); ALT (GPT) 33 U/L (12-78); TOTAL BILIRUBIN ADULT 0.3 MG/DL (0.2-1.0)
--- NOTE | 2016-12-17 21:58 | PD ---
HPI Chief Complaint: Psychiatric Symptoms Time Seen by Provider: 21:58 Travel History International Travel<30 days: No Contact w/Intl Traveler<30days: No Traveled to known affect area: No History of Present Illness HPI 51-year-old male with history of bipolar disorder, currently not taking any medication, presents to the emergency department for psychiatric evaluation. Patient states he is depressed and having suicidal thoughts. He denies any current plan. Patient has previous suicide attempts. States he has been worsening since losing his . Patient states that he needs help and would like to back on his medications. He also has history of seizure disorder and has not been taking his medication for this. States that his last seizure was probably 2 weeks ago. He has no other symptoms to report at this time. PFSH Past Medical History Hx Anticoagulant Therapy: No ADHD: Yes Arthritis: No Asthma: No Autoimmune Disease: No Blood Disorders: No Bipolar Disorder: Yes Anxiety: Yes Depression: Yes Heart Rhythm Problems: No Cancer: No Cardiovascular Problems: Yes (htn on meds) High Cholesterol: Yes Chest Pain: No Congestive Heart Failure: No COPD: Yes Cystic Fibrosis: No Diminished Hearing: No Endocrine: No Gastrointestinal Disorders: No Genitourinary: No Headaches: No Herniated Disk: Yes Hypertension: Yes Immune Disorder: No Implanted Vascular Access Dvce: No Insomnia: Yes Musculoskeletal: Yes Neurologic: Yes (NEUROPATHY) Psychiatric: Yes (Hx of treatment for Bipolar Disorder) Reproductive: No Respiratory: Yes Integumentary: Yes (HX MRSA FROM WOUND INFECTION- LEFT LEG ) Immunizations Current: Yes Migraines: Yes Seizures: Yes Tetanus Vaccination: > 5 Years Influenza Vaccination: Yes PNEUMOCCOCAL Vaccine (Year): 1 Past Surgical History Abdominal Surgery: No Cardiac Surgery: No Ear Surgery: No Endocrine Surgery: No Eye Surgery: No Genitourinary Surgery: No Gynecologic Surgery: No Neurologic Surgery: Yes (CERVICAL FUSION) Oral Surgery: No Pacemaker: No Thoracic Surgery: No Other Surgery: Yes ( CARPAL TUNNEL SURGERY BILAT) Social History Alcohol Use: No (denies) Tobacco Use: Yes (1 PPD) Substance Use: Yes (+THC, BENZOS, ALCOHOL) Allergies-Medications (Allergen,Severity, Reaction): Coded Allergies: *MDRO Multi-Drug Resistant Organism (Verified Adverse Reaction, Unknown, ) MRSA PCR screen (nares) POSITIVE - 05/09/16 MRSA (elbow) - 05/14/16 Reported Meds & Prescriptions Reported Meds & Active Scripts Active Risperdal (Risperidone) 1 Mg Tab 1 Mg PO BID 5 Days Reported Ciprofloxacin (Ciprofloxacin HCl) 500 Mg Tab 500 Mg PO BID Flexeril (Cyclobenzaprine HCl) 10 Mg Tab 10 Mg PO TID Hydrochlorothiazide 25 Mg Tab 25 Mg PO BID Advair Diskus Inh (Fluticasone-Salmeterol Inh) 100-50 Mcg/Blist Aer 1 Puff INH BID Rinse mouth after use. Oxycodone (Oxycodone HCl) 20 Mg Tab 20 Mg PO Q8H PRN Dilantin (Phenytoin Extended) 100 Mg Cap 100 Mg PO TID Diazepam 10 Mg Tab 10 Mg PO BID PRN Clonazepam 1 Mg Tab 1 Mg PO BID Buspirone (Buspirone HCl) 15 Mg Tab 15 Mg PO BID Gabapentin 600 Mg Tab 600 Mg PO BID Keflex (Cephalexin) 500 Mg Cap 500 Mg PO Q12H Ventolin Hfa 18 GM Inh (Albuterol Sulfate) 90 Mcg/Act Aer 1 Puff INH Q4H PRN Combivent Respimat Inh (Ipratropium-Albuterol Inh) 20-100 [place]/Act Aero 1 Puff INH QID Lexapro (Escitalopram Oxalate) 10 Mg Tab 10 Mg PO DAILY Tegretol (Carbamazepine) 200 Mg Tab 200 Mg PO BID Review of Systems Except as stated in HPI: all other systems reviewed are Neg Physical Exam Narrative GENERAL: Well-nourished, well-developed male patient in no acute distress SKIN: Focused skin assessment warm/dry. HEAD: Normocephalic. EYES: No scleral icterus. No injection or drainage. NECK: Supple, trachea midline. No JVD or lymphadenopathy. CARDIOVASCULAR: Regular rate and rhythm without murmurs, gallops, or rubs. RESPIRATORY: Breath sounds equal bilaterally. No accessory muscle use. GASTROINTESTINAL: Abdomen soft, non-tender, nondistended. MUSCULOSKELETAL: No cyanosis, or edema. BACK: Nontender without obvious deformity. No CVA tenderness. PSYCHIATRIC: Depressed mood and flat affect. Data Data Last Documented VS Vital Signs Date Time Temp Pulse Resp B/P Pulse Ox O2 Delivery O2 Flow Rate FiO2 12/17/16 20:58 16 12/17/16 18:51 97.7 86 133/73 99 Room Air Orders Complete Blood Count With Diff (12/17/16 21:01) Comprehensive Metabolic Panel (12/17/16 21:01) Phenytoin (Dilantin) (12/17/16 21:01) Psych Screen (12/17/16 21:01) Drug Screen, Random Urine (12/17/16 21:01) Alcohol (Ethanol) (12/17/16 21:01) Salicylates (Aspirin) (12/17/16 21:01) Tylenol (Acetaminophen) (12/17/16 21:01) Diet Regular Basic (12/18/16 Breakfast) Labs Laboratory Tests Test 12/17/16 12/17/16 21:10 21:15 Urine Opiates Screen NEG Urine Barbiturates Screen NEG Urine Amphetamines Screen NEG Urine Benzodiazepines Screen POS Urine Cocaine Screen POS Urine Cannabinoids Screen POS White Blood Count 9.4 TH/MM3 Red Blood Count 4.53 MIL/MM3 Hemoglobin 13.6 GM/DL Hematocrit 40.6 % Mean Corpuscular Volume 89.7 FL Mean Corpuscular Hemoglobin 30.1 PG Mean Corpuscular Hemoglobin 33.5 % Concent Red Cell Distribution Width 13.3 % Platelet Count 274 TH/MM3 Mean Platelet Volume 7.4 FL Neutrophils (%) (Auto) 63.2 % Lymphocytes (%) (Auto) 29.3 % Monocytes (%) (Auto) 4.7 % Eosinophils (%) (Auto) 2.3 % Basophils (%) (Auto) 0.5 % Neutrophils # (Auto) 6.0 TH/MM3 Lymphocytes # (Auto) 2.8 TH/MM3 Monocytes # (Auto) 0.4 TH/MM3 Eosinophils # (Auto) 0.2 TH/MM3 Basophils # (Auto) 0.0 TH/MM3 CBC Comment DIFF FINAL Differential Comment Sodium Level 140 MEQ/L Potassium Level 3.7 MEQ/L Chloride Level 102 MEQ/L Carbon Dioxide Level 29.6 MEQ/L Anion Gap 8 MEQ/L Blood Urea Nitrogen 9 MG/DL Creatinine 1.03 MG/DL Estimat Glomerular Filtration 77 ML/MIN Rate Random Glucose 98 MG/DL Calcium Level 8.9 MG/DL Total Bilirubin 0.3 MG/DL Aspartate Amino Transf 63 U/L (AST/SGOT) Alanine Aminotransferase 33 U/L (ALT/SGPT) Alkaline Phosphatase 119 U/L Total Protein 7.1 GM/DL Albumin 3.6 GM/DL Salicylates Level 5.4 MG/DL Acetaminophen Level LESS THAN 2.0 MCG/ML Phenytoin (Dilantin) Level 0.7 MCG/ML Ethyl Alcohol Level LESS THAN 3 MG/DL MDM Medical Decision Making Medical Screen Exam Complete: Yes Emergency Medical Condition: Yes Medical Record Reviewed: Yes Differential Diagnosis Mid disorder versus personality disorder versus adjustment reaction disorder versus substance abuse Narrative Course 51-year-old male presents to emergency department for psychiatric evaluation. Patient appears without distress. CBC and CMP are without acute concern. Toxicology is positive for benzodiazepines, cocaine, and cannabinoids. Phenytoin level is subtherapeutic at 0.7. EtOH is less than 3. Patient is medically cleared to undergo psychiatric screening for further evaluation and disposition. Mental health screening discussed with the patient. Psychiatric screen ordered. Diagnosis Primary Impression: Other psychoactive substance abuse with psychoactive substance-induced mood disorder Condition: Stable Tierra Ohara December 17, 2016 21:58
[2016-12-18 05:57] VITALS: BP 121/59; PULSE 75; RESP 18; O2SAT 96
[2016-12-18 09:21] VITALS: BP 133/73; TEMP 97.7
== END 2016-12-18 09:46 | disposition short-term general hospital (02) ==
LOC: NEPD 18:47 → NEPJ 12-18 09:46
DX: F19.14 Other psychoactive substance abuse with psychoactive substance-induced mood disorder (principal); F31.9 Bipolar disorder, unspecified; Z79.899 Other long term (current) drug therapy
CPT/HCPCS: 80053; 80185; 80307; 85025; 99284

== ENCOUNTER 2017-03-06 17:08 | Emergency (ER) | payer MEDICARE, OTHER ==
[~2017-03-06] VITALS: Ht 193 cm; Wt 70.5 kg
[~2017-03-06 17:08] MED LIST changes: +ADVA100A INH; +BUSP15TA PO; +CEPH-460 PO; +CIPR500T2 PO; +CLON1TAB PO; +CYCL1TAB29 PO; +DIAZ10TA PO; +DILA100C PO; +GABA600T PO; +HYDR25TA5 PO; +IPRAAER INH; +LEXA10TA PO; +OXYC-396 PO; +VENTAER INH
[2017-03-06 17:12] VITALS: BP 169/109; PULSE 100; RESP 20; TEMP 98.3; O2SAT 96
== END 2017-03-06 18:55 | disposition left against medical advice (07) ==
LOC: NED 17:08 → NETRI 18:55
DX: R56.9 Unspecified convulsions (principal); Z53.21 Procedure and treatment not carried out due to patient leaving prior to being seen by health care provider
CPT/HCPCS: 99281

== ENCOUNTER 2017-04-07 22:53 | Emergency (ER) | payer OTHER, MEDICAID ==
[~2017-04-07] VITALS: Ht 193 cm; Wt 68.0 kg
[2017-04-07 22:58] VITALS: BP 139/93; PULSE 67; RESP 30; TEMP 98.9; O2SAT 96
[2017-04-07 23:08] VITALS: RESP 26; O2SAT 98
[2017-04-07] MEDS: SODIUM CHLOR 0.9% 1000 ML INJ 1,000 ML IV SCH (23:21)
--- NOTE | 2017-04-07 23:21 | PD ---
HPI Chief Complaint: Psychiatric Symptoms Time Seen by Provider: 23:04 Travel History International Travel<30 days: No Contact w/Intl Traveler<30days: No Traveled to known affect area: No History of Present Illness HPI 51-year-old male complains of nausea and generalized malaise and depression and suicidal. Patient states that his 2 years ago and he has depression since then. Patient also has history of the neck pain status post neck surgery. Patient was taking oxycodone for pain. Oxycodone was changed to hydrocodone recently. Patient states that last dose of hydrocodone was a week ago. Patient has been taking gabapentin 300 mg 3 times a day for pain. Patient also has been abusing heroin for pain. Last heroin use was yesterday. Patient took 90 pills of gabapentin 300 mg each this evening. Patient states that he took the medication between 8:00 and 9:00 this evening. Patient denies any headache. Patient denies any chest pain or shortness of breath. Patient denies abdominal pain. Patient denies any focal weakness or numbness of the extremity. EMS was called. Patient was given Zofran [address] IV [address] the way to the ED. Patient states that he has history of bipolar disorder and on medication in the past. PFSH Past Medical History Hx Anticoagulant Therapy: No ADHD: Yes Arthritis: No Asthma: No Autoimmune Disease: No Blood Disorders: No Bipolar Disorder: Yes Anxiety: Yes Depression: Yes Heart Rhythm Problems: No Cancer: No Cardiovascular Problems: Yes (htn on meds) High Cholesterol: Yes Chest Pain: No Congestive Heart Failure: No COPD: Yes Cystic Fibrosis: No Diminished Hearing: No Endocrine: No Gastrointestinal Disorders: No Genitourinary: No Headaches: No Herniated Disk: Yes Hypertension: Yes Immune Disorder: No Implanted Vascular Access Dvce: No Insomnia: Yes Musculoskeletal: Yes Neurologic: Yes (NEUROPATHY) Psychiatric: Yes (Hx of treatment for Bipolar Disorder) Reproductive: No Respiratory: Yes Integumentary: Yes (HX MRSA FROM WOUND INFECTION- LEFT LEG ) Immunizations Current: Yes Migraines: Yes Seizures: Yes Tetanus Vaccination: > 5 Years Influenza Vaccination: Yes PNEUMOCCOCAL Vaccine (Year): 1 Past Surgical History Abdominal Surgery: No Cardiac Surgery: No Ear Surgery: No Endocrine Surgery: No Eye Surgery: No Genitourinary Surgery: No Gynecologic Surgery: No Neurologic Surgery: Yes (CERVICAL FUSION) Oral Surgery: No Pacemaker: No Thoracic Surgery: No Other Surgery: Yes ( CARPAL TUNNEL SURGERY BILAT) Social History Alcohol Use: No (denies) Tobacco Use: Yes (1 PPD) Substance Use: Yes (+THC, BENZOS,COCAINE, HEROIN) Allergies-Medications (Allergen,Severity, Reaction): Coded Allergies: *MDRO Multi-Drug Resistant Organism (Verified Adverse Reaction, Unknown, ) MRSA PCR screen (nares) POSITIVE - 05/09/16 MRSA (elbow) - 05/14/16 Reported Meds & Prescriptions Reported Meds & Active Scripts Active Risperdal (Risperidone) 1 Mg Tab 1 Mg PO BID 5 Days Reported Ciprofloxacin (Ciprofloxacin HCl) 500 Mg Tab 500 Mg PO BID Flexeril (Cyclobenzaprine HCl) 10 Mg Tab 10 Mg PO TID Hydrochlorothiazide 25 Mg Tab 25 Mg PO BID Advair Diskus Inh (Fluticasone-Salmeterol Inh) 100-50 Mcg/Blist Aer 1 Puff INH BID Rinse mouth after use. Oxycodone (Oxycodone HCl) 20 Mg Tab 20 Mg PO Q8H PRN Dilantin (Phenytoin Extended) 100 Mg Cap 100 Mg PO TID Diazepam 10 Mg Tab 10 Mg PO BID PRN Clonazepam 1 Mg Tab 1 Mg PO BID Buspirone (Buspirone HCl) 15 Mg Tab 15 Mg PO BID Gabapentin 600 Mg Tab 600 Mg PO BID Keflex (Cephalexin) 500 Mg Cap 500 Mg PO Q12H Ventolin Hfa 18 GM Inh (Albuterol Sulfate) 90 Mcg/Act Aer 1 Puff INH Q4H PRN Combivent Respimat Inh (Ipratropium-Albuterol Inh) 20-100 Fci/Act Aero 1 Puff INH QID Lexapro (Escitalopram Oxalate) 10 Mg Tab 10 Mg PO DAILY Tegretol (Carbamazepine) 200 Mg Tab 200 Mg PO BID Review of Systems General / Constitutional: No: Fever Eyes: No: Visual changes HENT: No: Headaches Cardiovascular: No: Chest Pain or Discomfort Respiratory: No: Shortness of Breath Gastrointestinal: Positive: Nausea, No: Abdominal Pain Genitourinary: No: Dysuria Musculoskeletal: No: Pain Skin: No Rash Neurologic: No: Weakness Psychiatric: No: Depression Endocrine: No: Polydipsia Hematologic/Lymphatic: No: Easy Bruising Physical Exam Narrative GENERAL: Well-nourished, well-developed patient. SKIN: Focused skin assessment warm/dry. HEAD: Normocephalic. EYES: No scleral icterus. No injection or drainage. NECK: Supple, trachea midline. No JVD or lymphadenopathy. CARDIOVASCULAR: Regular rate and rhythm without murmurs, gallops, or rubs. RESPIRATORY: Breath sounds equal bilaterally. No accessory muscle use. GASTROINTESTINAL: Abdomen soft, non-tender, nondistended. MUSCULOSKELETAL: No cyanosis, or edema. BACK: Nontender without obvious deformity. No CVA tenderness. Neurologic exam normal. Data Data Last Documented VS Vital Signs Date Time Temp Pulse Resp B/P (MAP) Pulse Ox O2 Delivery O2 Flow Rate FiO2 04/07/17 23:08 26 98 Room Air 04/07/17 22:58 98.9 67 139/93 (108) Orders Orders Electrocardiogram (04/07/17 23:04) Complete Blood Count With Diff (04/07/17 23:04) Comprehensive Metabolic Panel (04/07/17 23:04) Prothrombin Time / Inr (Pt) (04/07/17 23:04) Act Partial Throm Time (Ptt) (04/07/17 23:04) Thyroid Stimulating Hormone (04/07/17 23:04) Chest, Single Ap (04/07/17 23:04) Iv Access Insert/Monitor (04/07/17 23:04) Ecg Monitoring (04/07/17 23:04) Oximetry (04/07/17 23:04) Drug Screen, Random Urine (04/07/17 23:04) Alcohol (Ethanol) (04/07/17 23:04) Salicylates (Aspirin) (04/07/17 23:04) Tylenol (Acetaminophen) (04/07/17 23:04) Sodium Chlor 0.9% 1000 Ml Inj (Ns 1000 M (04/07/17 23:15) Psych Screen (04/07/17 23:08) Labs Laboratory Tests Test 04/07/17 23:15 04/07/17 23:54 White Blood Count 16.9 TH/MM3 Red Blood Count 5.10 MIL/MM3 Hemoglobin 15.4 GM/DL Hematocrit 46.0 % Mean Corpuscular Volume 90.2 FL Mean Corpuscular Hemoglobin 30.1 PG Mean Corpuscular Hemoglobin Concent 33.4 % Red Cell Distribution Width 14.0 % Platelet Count 331 TH/MM3 Mean Platelet Volume 7.8 FL Neutrophils (%) (Auto) 78.7 % Lymphocytes (%) (Auto) 13.3 % Monocytes (%) (Auto) 6.0 % Eosinophils (%) (Auto) 0.3 % Basophils (%) (Auto) 1.7 % Neutrophils # (Auto) 13.3 TH/MM3 Lymphocytes # (Auto) 2.2 TH/MM3 Monocytes # (Auto) 1.0 TH/MM3 Eosinophils # (Auto) 0.1 TH/MM3 Basophils # (Auto) 0.3 TH/MM3 CBC Comment AUTO DIFF Differential Comment AUTO DIFF CONFIRMED Prothrombin Time 11.2 SEC Prothromb Time International Ratio 1.0 RATIO Activated Partial Thromboplast Time 27.5 SEC Blood Urea Nitrogen 9 MG/DL Creatinine 1.01 MG/DL Random Glucose 121 MG/DL Total Protein 7.7 GM/DL Albumin 3.7 GM/DL Calcium Level 8.8 MG/DL Alkaline Phosphatase 130 U/L Aspartate Amino Transf (AST/SGOT) 15 U/L Alanine Aminotransferase (ALT/SGPT) 19 U/L Total Bilirubin 0.4 MG/DL Sodium Level 141 MEQ/L Potassium Level 3.8 MEQ/L Chloride Level 105 MEQ/L Carbon Dioxide Level 23.7 MEQ/L Anion Gap 12 MEQ/L Estimat Glomerular Filtration Rate 79 ML/MIN Thyroid Stimulating Hormone 3rd Gen 0.373 uIU/ML Salicylates Level 5.0 MG/DL Acetaminophen Level LESS THAN 2.0 MCG/ML Ethyl Alcohol Level LESS THAN 3 MG/DL Urine Opiates Screen POS Urine Barbiturates Screen NEG Urine Amphetamines Screen NEG Urine Benzodiazepines Screen POS Urine Cocaine Screen NEG Urine Cannabinoids Screen POS [facility] Medical Decision Making Medical Screen Exam Complete: Yes Emergency Medical Condition: Yes Interpretation(s) 1:46 AM. Chest x-ray shows no acute consolidation. CBC WBC 16.9. 78 neutrophil. CMP within normal limit. Urine drug screen positive for opiates, benzodiazepine, cannabis. Alcohol negative. Salicylate and acetaminophen negative. Differential Diagnosis Differential diagnosis including depression, suicidal, medication overdose. Narrative Course 51-year-old male with overdose on gabapentin. Poison control contacted. Advised supportive care. Normal saline solution 1 25 cc an hour. 1:48 AM. Patient is medically cleared for psychiatric evaluation and disposition. Srinath Taveras MD Apr 07, 2017 23:21
[2017-04-07 23:34] LABS: AUTOMATED NEUTROPHIL # 13.3 TH/MM3 (1.8-7.7); BASOPHIL # 0.3 TH/MM3 (0-0.2); BASOPHIL % 1.7 % (0.0-2.0); EOSINOPHIL # 0.1 TH/MM3 (0-0.4); EOSINOPHIL % 0.3 % (0.0-4.0); LYMPH % 13.3 % (9.0-44.0); LYMPHOCYTE # 2.2 TH/MM3 (1.0-4.8); MEAN CELL VOLUME 90.2 FL (80.0-100.0); MEAN CORPUSCULAR HEMOGLOBIN 30.1 PG (27.0-34.0); MEAN CORPUSCULAR HGB CONC 33.4 % (32.0-36.0); NEUT % 78.7 % (16.0-70.0); PLATELET COUNT 331 TH/MM3 (150-450); WHITE BLOOD COUNT 16.9 TH/MM3 (4.0-11.0)
[2017-04-07 23:38] LABS: APTT (PATIENT) 27.5 SEC (24.3-30.1); PROTHROMBIN TIME - PATIENT 11.2 SEC (9.8-11.6)
[2017-04-07 23:42] LABS: ALT (GPT) 19 U/L (12-78); ANION GAP 12 MEQ/L (5-15); AST (GOT) 15 U/L (15-37); BICARBONATE 23.7 MEQ/L (21.0-32.0); BLOOD UREA NITROGEN 9 MG/DL (7-18); CHLORIDE 105 MEQ/L (98-107); GLOMERULAR FILTRATION RATE 79 ML/MIN (>89); HEMO FLAGS AUTO DIFF; POTASSIUM 3.8 MEQ/L (3.5-5.1); SODIUM (NA) 141 MEQ/L (136-145)
--- NOTE | 2017-04-07 23:51 | RADRPT ---
EXAM DATE/TIME: 04/07/2017 23:40 [facility] COMPARISON: CHEST SINGLE AP, June 09, 2016, 8:43. INDICATIONS : Shortness of breath. MEDICAL HISTORY : Hypertension. Hypercholesterolemia. Chronic obstructive pulmonary disease. SURGICAL HISTORY : Fusion, cervical. ENCOUNTER: Initial ACUITY: 1 day PAIN SCORE: 0/10 LOCATION: Bilateral chest FINDINGS: A single view of the chest demonstrates the lungs to be symmetrically aerated without evidence of mas s, infiltrate or effusion. The cardiomediastinal contours are unremarkable. Osseous structures are intact. CONCLUSION: Normal examination. Carson Pardo MD on April 07, 2017 at 23:50 Board Certified Radiologist. This report was verified electronically.
[2017-04-07 23:52] LABS: ALKALINE PHOSPHATASE 130 U/L (45-117); TOTAL BILIRUBIN ADULT 0.4 MG/DL (0.2-1.0)
[2017-04-08 00:08] LABS: ACETAMINOPHEN LESS THAN 2.0 MCG/ML (10.0-30.0); ALCOHOL LESS THAN 3 MG/DL (0-5)
[2017-04-08 00:44] LABS: SCAN/DIFF AUTO DIFF CONFIRMED
[2017-04-08 06:00] VITALS: BP 119/80; PULSE 60; RESP 16; O2SAT 98
[2017-04-08] MEDS: SODIUM CHLOR 0.9% 1000 ML INJ 1,000 ML IV SCH (07:15)
[2017-04-08 08:40] VITALS: BP 150/100; PULSE 86; RESP 16; O2SAT 97
--- NOTE | 2017-04-08 11:39 | PD ---
Physical Exam Date Seen by Provider: Apr 08, 2017 Time Seen by Provider: 11:37 Narrative The patient is a 51-year-old male who was evaluated by the previous physician, Dr. Taveras. Please refer to the initial history, physical, diagnostic evaluation , and treatment modality plan. Data Data Last Documented VS Vital Signs Date Time Temp Pulse Resp B/P (MAP) Pulse Ox O2 Delivery O2 Flow Rate FiO2 04/08/17 08:40 86 16 150/100 (117) 97 Room Air 04/07/17 22:58 98.9 Orders Orders Electrocardiogram (04/07/17 23:04) Complete Blood Count With Diff (04/07/17 23:04) Comprehensive Metabolic Panel (04/07/17 23:04) Prothrombin Time / Inr (Pt) (04/07/17 23:04) Act Partial Throm Time (Ptt) (04/07/17 23:04) Thyroid Stimulating Hormone (04/07/17 23:04) Chest, Single Ap (04/07/17 23:04) Iv Access Insert/Monitor (04/07/17 23:04) Ecg Monitoring (04/07/17 23:04) Oximetry (04/07/17 23:04) Drug Screen, Random Urine (04/07/17 23:04) Alcohol (Ethanol) (04/07/17 23:04) Salicylates (Aspirin) (04/07/17 23:04) Tylenol (Acetaminophen) (04/07/17 23:04) Sodium Chlor 0.9% 1000 Ml Inj (Ns 1000 M (04/07/17 23:15) Psych Screen (04/07/17 23:08) Diet Regular Basic (04/08/17 Breakfast) Labs Laboratory Tests Test 04/07/17 23:15 04/07/17 23:54 White Blood Count 16.9 TH/MM3 Red Blood Count 5.10 MIL/MM3 Hemoglobin 15.4 GM/DL Hematocrit 46.0 % Mean Corpuscular Volume 90.2 FL Mean Corpuscular Hemoglobin 30.1 PG Mean Corpuscular Hemoglobin Concent 33.4 % Red Cell Distribution Width 14.0 % Platelet Count 331 TH/MM3 Mean Platelet Volume 7.8 FL Neutrophils (%) (Auto) 78.7 % Lymphocytes (%) (Auto) 13.3 % Monocytes (%) (Auto) 6.0 % Eosinophils (%) (Auto) 0.3 % Basophils (%) (Auto) 1.7 % Neutrophils # (Auto) 13.3 TH/MM3 Lymphocytes # (Auto) 2.2 TH/MM3 Monocytes # (Auto) 1.0 TH/MM3 Eosinophils # (Auto) 0.1 TH/MM3 Basophils # (Auto) 0.3 TH/MM3 CBC Comment AUTO DIFF Differential Comment AUTO DIFF CONFIRMED Prothrombin Time 11.2 SEC Prothromb Time International Ratio 1.0 RATIO Activated Partial Thromboplast Time 27.5 SEC Blood Urea Nitrogen 9 MG/DL Creatinine 1.01 MG/DL Random Glucose 121 MG/DL Total Protein 7.7 GM/DL Albumin 3.7 GM/DL Calcium Level 8.8 MG/DL Alkaline Phosphatase 130 U/L Aspartate Amino Transf (AST/SGOT) 15 U/L Alanine Aminotransferase (ALT/SGPT) 19 U/L Total Bilirubin 0.4 MG/DL Sodium Level 141 MEQ/L Potassium Level 3.8 MEQ/L Chloride Level 105 MEQ/L Carbon Dioxide Level 23.7 MEQ/L Anion Gap 12 MEQ/L Estimat Glomerular Filtration Rate 79 ML/MIN Thyroid Stimulating Hormone 3rd Gen 0.373 uIU/ML Salicylates Level 5.0 MG/DL Acetaminophen Level LESS THAN 2.0 MCG/ML Ethyl Alcohol Level LESS THAN 3 MG/DL Urine Opiates Screen POS Urine Barbiturates Screen NEG Urine Amphetamines Screen NEG Urine Benzodiazepines Screen POS Urine Cocaine Screen NEG Urine Cannabinoids Screen POS MDM Medical Record Reviewed: Yes Supervised Visit with THOMAS: No Interpretation(s) Laboratory Tests Test 04/07/17 23:15 04/07/17 23:54 White Blood Count 16.9 TH/MM3 Red Blood Count 5.10 MIL/MM3 Hemoglobin 15.4 GM/DL Hematocrit 46.0 % Mean Corpuscular Volume 90.2 FL Mean Corpuscular Hemoglobin 30.1 PG Mean Corpuscular Hemoglobin Concent 33.4 % Red Cell Distribution Width 14.0 % Platelet Count 331 TH/MM3 Mean Platelet Volume 7.8 FL Neutrophils (%) (Auto) 78.7 % Lymphocytes (%) (Auto) 13.3 % Monocytes (%) (Auto) 6.0 % Eosinophils (%) (Auto) 0.3 % Basophils (%) (Auto) 1.7 % Neutrophils # (Auto) 13.3 TH/MM3 Lymphocytes # (Auto) 2.2 TH/MM3 Monocytes # (Auto) 1.0 TH/MM3 Eosinophils # (Auto) 0.1 TH/MM3 Basophils # (Auto) 0.3 TH/MM3 CBC Comment AUTO DIFF Differential Comment AUTO DIFF CONFIRMED Prothrombin Time 11.2 SEC Prothromb Time International Ratio 1.0 RATIO Activated Partial Thromboplast Time 27.5 SEC Blood Urea Nitrogen 9 MG/DL Creatinine 1.01 MG/DL Random Glucose 121 MG/DL Total Protein 7.7 GM/DL Albumin 3.7 GM/DL Calcium Level 8.8 MG/DL Alkaline Phosphatase 130 U/L Aspartate Amino Transf (AST/SGOT) 15 U/L Alanine Aminotransferase (ALT/SGPT) 19 U/L Total Bilirubin 0.4 MG/DL Sodium Level 141 MEQ/L Potassium Level 3.8 MEQ/L Chloride Level 105 MEQ/L Carbon Dioxide Level 23.7 MEQ/L Anion Gap 12 MEQ/L Estimat Glomerular Filtration Rate 79 ML/MIN Thyroid Stimulating Hormone 3rd Gen 0.373 uIU/ML Salicylates Level 5.0 MG/DL Acetaminophen Level LESS THAN 2.0 MCG/ML Ethyl Alcohol Level LESS THAN 3 MG/DL Urine Opiates Screen POS Urine Barbiturates Screen NEG Urine Amphetamines Screen NEG Urine Benzodiazepines Screen POS Urine Cocaine Screen NEG Urine Cannabinoids Screen POS Differential Diagnosis Differential diagnosis includes substance induced mood disorder, polysubstance abuse, substance ingestion, suicidal ideation, bipolar affective disorder, depressive disorder NOS. Narrative Course Patient was initially evaluated by the previous physician, Dr. Taveras. Please refer to the initial history, physical, diagnostic evaluation, treatment modality plan. The patient was medically clear. The patient was evaluated by psychiatry, the patient is no longer suicidal, currently does not have a suicide plan. The patient would like to be discharged so he can go to [facility] and have him patient treatment for his substance abuse. The patient states she's been under a lot of stress recently, and using heroin, but would like to get off the heroin for his chronic pain. The patient denies current suicidal ideation and denies current suicidal plan as of 11:30 AM. The patient will be discharged. Diagnosis Primary Impression: Polysubstance abuse Patient Instructions: General Instructions Additional Instruction: Follow-up with your drug rehabilitation program. Return if symptoms worsen or progress. Disposition: 01 DISCHARGE HOME Condition: Stable Sheng Elizondo MD Apr 08, 2017 11:39
--- NOTE | 2017-04-08 11:46 | PD ---
History of Present Illness Chief Complaint: Psychiatric Symptoms Time Seen by Provider: 11:15 Travel History International Travel<30 Days: No Contact w/Intl Traveler<30days: No Known affected area: No Legal Status Legal Status: Hughes Act Hughes Act Signed By: Maria Del Carmen Cottrell History of Present Illness: History of Present Illness HPI 51-year-old male with a reported history of schizophrenia , record history of substance use disorder and substance induced mood disorder who presents under a Hughes act initiate by [facility]EE[facility] after the he called them and reported that he felt depressed about being disabled and about the of his 2 years ago. He reported he took 90 Gabapentin in an attempt to end his life . He reports that his medication for pain were changed from Oxycodone to hydrocodone recently. He reports that he is using heroin with last use yesterday. Last heroin use was yesterday. Patient took 90 pills of gabapentin 300 mg each this evening. Patient states that he took the medication between 8:00 and 9:00 this evening. EMR is reviewed. he has multiple visits to ED for substance abuse issues and sequelae. He was last admitted to psychiatry Sep 2016 under the care of Dr. Lopez. Patient seen. EMR reviewed. Case discussed with Dr. Elizondo. Current toxicology is positive for benzos, cannabinoids as well as opiates. He is alert an oriented male with disheveled appearance. His speech is clear and logical. States " I'm trying to get to [facility] and I have a bed there. I don't know why the fuck the ambulance brought me here. This is a piece of [facility] and I don't need to be here. My life sucks and I'm angry all the time ". I need to be detoxed because I don't want to live like this anymore". He denies any suicidal ideation, intent or plan and repeats that he wants to go to [facility] for detox services. In terms of the reports of him taking #90 of gabapentin he states " I ate those up but i knew that would not have done anything to me". PFSH Past Medical History Hx Anticoagulant Therapy: No ADHD: Yes Arthritis: No Asthma: No Autoimmune Disease: No Blood Disorders: No Bipolar Disorder: Yes Anxiety: Yes Depression: Yes Heart Rhythm Problems: No Cancer: No Cardiovascular Problems: Yes (htn on meds) High Cholesterol: Yes Chest Pain: No Congestive Heart Failure: No COPD: Yes Cystic Fibrosis: No Diminished Hearing: No Endocrine: No Gastrointestinal Disorders: No Genitourinary: No Headaches: No Herniated Disk: Yes Hypertension: Yes Immune Disorder: No Implanted Vascular Access Dvce: No Insomnia: Yes Musculoskeletal: Yes Neurologic: Yes (NEUROPATHY) Psychiatric: Yes (Hx of treatment for Bipolar Disorder) Reproductive: No Respiratory: Yes Integumentary: Yes (HX MRSA FROM WOUND INFECTION- LEFT LEG ) Immunizations Current: Yes Migraines: Yes Seizures: Yes Tetanus Vaccination: > 5 Years Influenza Vaccination: Yes PNEUMOCCOCAL Vaccine (Year): 1 Past Surgical History Abdominal Surgery: No Cardiac Surgery: No Ear Surgery: No Endocrine Surgery: No Eye Surgery: No Genitourinary Surgery: No Gynecologic Surgery: No Neurologic Surgery: Yes (CERVICAL FUSION) Oral Surgery: No Pacemaker: No Thoracic Surgery: No Other Surgery: Yes ( CARPAL TUNNEL SURGERY BILAT) Psychiatric History Psychiatric History Hx Psychiatric Treatment: HX OF ANXIETY, DEPRESSION AND BIPOLAR D/O Last psychiatric hosp was 2 months ago at [facility] Currently not on meduication. History of Inpatient Treatment: Yes [place] [place] [facility] ) Guns or firearms in home: No Social History male. Was living with friends. Disabled due to medical issues. Hx Alcohol Use: No (denies) Hx Tobacco Use: Yes (1 PPD) Hx Substance Use: Yes Substance Use Type: Marijuana, Benzos (Valium,Xanax), Synth Opiates-Pain Pills Other Substances Used: PT REPORTS USING MARIJUANA DAILY Hx of Substance Use Treatment: Yes Family Psychiatric History Vague reports that " craziness" run s in his family Allergies-Medications (Allergen,Severity, Reaction): Coded Allergies: *MDRO Multi-Drug Resistant Organism (Verified Adverse Reaction, Unknown, ) MRSA PCR screen (nares) POSITIVE - 05/09/16 MRSA (elbow) - 05/14/16 Reported Meds & Prescriptions Reported Meds & Active Scripts Active Risperdal (Risperidone) 1 Mg Tab 1 Mg PO BID 5 Days Reported Ciprofloxacin (Ciprofloxacin HCl) 500 Mg Tab 500 Mg PO BID Flexeril (Cyclobenzaprine HCl) 10 Mg Tab 10 Mg PO TID Hydrochlorothiazide 25 Mg Tab 25 Mg PO BID Advair Diskus Inh (Fluticasone-Salmeterol Inh) 100-50 Mcg/Blist Aer 1 Puff INH BID Rinse mouth after use. Oxycodone (Oxycodone HCl) 20 Mg Tab 20 Mg PO Q8H PRN Dilantin (Phenytoin Extended) 100 Mg Cap 100 Mg PO TID Diazepam 10 Mg Tab 10 Mg PO BID PRN Clonazepam 1 Mg Tab 1 Mg PO BID Buspirone (Buspirone HCl) 15 Mg Tab 15 Mg PO BID Gabapentin 600 Mg Tab 600 Mg PO BID Keflex (Cephalexin) 500 Mg Cap 500 Mg PO Q12H Ventolin Hfa 18 GM Inh (Albuterol Sulfate) 90 Mcg/Act Aer 1 Puff INH Q4H PRN Combivent Respimat Inh (Ipratropium-Albuterol Inh) 20-100 Jail/Act Aero 1 Puff INH QID Lexapro (Escitalopram Oxalate) 10 Mg Tab 10 Mg PO DAILY Tegretol (Carbamazepine) 200 Mg Tab 200 Mg PO BID Review of Systems Gastrointestinal: COMPLAINS OF: Diarrhea, Nausea Musculoskeletal: COMPLAINS OF: Back pain, Neck pain Exam Alert: Yes [place]: Person (ox4) Mood: Angry Affect: Appropriate Speech: Clear, Logical Eye Contact: Normal Memory Intact: Comment (No impairment) Delusions: No Suicidal: Ideation (deneis any) Homicidal: Ideation (Deneis any) Insight/Judgement Poor. Not impaired. MDM Medical Decision Making Medical Record Reviewed: Yes Assessment/Plan 51-year-old male with a reported history of schizophrenia , record history of substance use disorder and substance induced mood disorder who presents under a Hughes act initiate by HASEEB after the he called them and reported that he felt depressed about being disabled and about the of his 2 years ago. Patient denies any suicidal ideation. He is future oriented and wants to go to [facility]. He ultimately admits he doesn't want to kill himself or anyone else. No access to guns or firearms. Appears to be attending to his basic needs. No evidence of any unstable mental illness as defined under the Hughes act. Main issue seems to be substance use. Weighing the relevant factors and based on the available evidence, the patient does not currently meet the Hughes act criteria. Hughes act lifted. Patient is wanting to go to [facility] and has reported he has made the necessary arrangements with them for admission there for detox chemical dependency evaluation and treatment. Patient to return to psychiatric emergency room for any concerning psychiatric symptoms. Patient psychiatrically clear for discharge from the ED. BA is lifted. Orders Orders Electrocardiogram (04/07/17 23:04) Complete Blood Count With Diff (04/07/17 23:04) Comprehensive Metabolic Panel (04/07/17 23:04) Prothrombin Time / Inr (Pt) (04/07/17 23:04) Act Partial Throm Time (Ptt) (04/07/17 23:04) Thyroid Stimulating Hormone (04/07/17 23:04) Chest, Single Ap (04/07/17 23:04) Iv Access Insert/Monitor (04/07/17 23:04) Ecg Monitoring (04/07/17 23:04) Oximetry (04/07/17 23:04) Drug Screen, Random Urine (04/07/17 23:04) Alcohol (Ethanol) (04/07/17 23:04) Salicylates (Aspirin) (04/07/17 23:04) Tylenol (Acetaminophen) (04/07/17 23:04) Sodium Chlor 0.9% 1000 Ml Inj (Ns 1000 M (04/07/17 23:15) Psych Screen (04/07/17 23:08) Diet Regular Basic (04/08/17 Breakfast) Results Vital Signs Date Time Temp Pulse Resp B/P (MAP) Pulse Ox O2 Delivery O2 Flow Rate FiO2 04/08/17 08:40 86 16 150/100 (117) 97 Room Air 04/08/17 06:00 60 16 119/80 (93) 98 Room Air 04/07/17 23:08 26 98 Room Air 04/07/17 22:58 98.9 67 30 139/93 (108) 96 Laboratory Tests Test 04/07/17 23:15 04/07/17 23:54 White Blood Count 16.9 Red Blood Count 5.10 Hemoglobin 15.4 Hematocrit 46.0 Mean Corpuscular Volume 90.2 Mean Corpuscular Hemoglobin 30.1 Mean Corpuscular Hemoglobin Concent 33.4 Red Cell Distribution Width 14.0 Platelet Count 331 Mean Platelet Volume 7.8 Neutrophils (%) (Auto) 78.7 Lymphocytes (%) (Auto) 13.3 Monocytes (%) (Auto) 6.0 Eosinophils (%) (Auto) 0.3 Basophils (%) (Auto) 1.7 Neutrophils # (Auto) 13.3 Lymphocytes # (Auto) 2.2 Monocytes # (Auto) 1.0 Eosinophils # (Auto) 0.1 Basophils # (Auto) 0.3 CBC Comment AUTO DIFF Differential Comment AUTO DIFF CONFIRMED Prothrombin Time 11.2 Prothromb Time International Ratio 1.0 Activated Partial Thromboplast Time 27.5 Blood Urea Nitrogen 9 Creatinine 1.01 Random Glucose 121 Total Protein 7.7 Albumin 3.7 Calcium Level 8.8 Alkaline Phosphatase 130 Aspartate Amino Transf (AST/SGOT) 15 Alanine Aminotransferase (ALT/SGPT) 19 Total Bilirubin 0.4 Sodium Level 141 Potassium Level 3.8 Chloride Level 105 Carbon Dioxide Level 23.7 Anion Gap 12 Estimat Glomerular Filtration Rate 79 Thyroid Stimulating Hormone 3rd Gen 0.373 Salicylates Level 5.0 Acetaminophen Level LESS THAN 2.0 Ethyl Alcohol Level LESS THAN 3 Urine Opiates Screen POS Urine Barbiturates Screen NEG Urine Amphetamines Screen NEG Urine Benzodiazepines Screen POS Urine Cocaine Screen NEG Urine Cannabinoids Screen POS Diagnosis Primary Impression: Polysubstance abuse Additional Impression: Substance induced mood disorder Psychiatrically Cleared: Yes Patient Instructions: General Instructions Additional Instructions: Follow-up with your drug rehabilitation program. Return if symptoms worsen or progress. Med/ Other Pt Specific Info: No Change to Meds Disposition: 01 DISCHARGE HOME Condition: Stable Problem Qualifiers Kiera Neal Apr 08, 2017 11:46
--- NOTE | 2017-04-08 11:54 | EKG ---
Date Performed: 04/07/2017 Time Performed: 23:05:49 PTAGE: 51 years EKG: Sinus rhythm POSSIBLE LEFT ATRIAL ENLARGEMENT POSSIBLE RIGHT VENTRICULAR CONDUCTION DELAY PEAKED T WAVES BORDERLI NE ECG PREVIOUS TRACING : 09/22/2016 16.19 Compared to prior tracing no significant change DOCTOR: Shahid Genao Interpretating Date/Time 04/08/2017 11:53:30
== END 2017-04-08 12:04 | disposition home or self-care (01) ==
LOC: NEPE 22:53
DX: F19.14 Other psychoactive substance abuse with psychoactive substance-induced mood disorder (principal); F17.200 Nicotine dependence, unspecified, uncomplicated; I10 Essential (primary) hypertension; J44.9 Chronic obstructive pulmonary disease, unspecified; Z79.899 Other long term (current) drug therapy
CPT/HCPCS: 71010; 80053; 80307; 84443; 85025; 85610; 85730; 93005; 96360; 96361; 99285; J7030

== ENCOUNTER 2017-04-24 09:49 | Emergency (ER) | payer MEDICARE, OTHER ==
[~2017-04-24] VITALS: Ht 185.4 cm; Wt 68.8 kg
[2017-04-24 10:29] VITALS: BP 151/75; PULSE 65; RESP 18; TEMP 96.1; O2SAT 97
[2017-04-24] MEDS ORDERED: SODIUM CHLORIDE 0.9% FLUSH 10 ML FLUSH IVF PRN (13:00)
[2017-04-24] MEDS ORDERED: RESP: LIDOCAINE HCL 4% PF 5 ML NEB NEB ONE (13:00)
[2017-04-24] MEDS ORDERED: predniSONE 50 MG TAB PO ONE (13:00)
--- NOTE | 2017-04-24 13:02 | PD ---
HPI Chief Complaint: Cold / Flu Symptoms Time Seen by Provider: 12:50 Travel History International Travel<30 days: No Contact w/Intl Traveler<30days: No Traveled to known affect area: No History of Present Illness HPI The patient is a 51-year-old male who presents to the emergency department for 4 days of cough and shortness of breath. The patient has a history of COPD and tobacco use. The patient has 4 days of mostly dry nonproductive cough as well as some chest tightness and wheezing. The patient does have a history of pneumonia with similar symptoms in the past, notes intermittent episodes of diaphoresis with coughing, but denies any actual fever. The patient denies any sore throat, nausea, vomiting, diarrhea, abdominal pain, or lower extremity edema. The patient denies any history of coronary artery disease, congestive heart failure, or pulmonary embolism. Symptoms are moderate and there are no current alleviating or exacerbating factors. The patient's primary physician is Dr. Maldonado who is located in [place], [place]. PFSH Past Medical History Hx Anticoagulant Therapy: No ADHD: Yes Arthritis: No Asthma: No Autoimmune Disease: No Blood Disorders: No Bipolar Disorder: Yes Anxiety: Yes Depression: Yes Heart Rhythm Problems: No Cancer: No Cardiovascular Problems: Yes (htn on meds) High Cholesterol: Yes Chest Pain: No Congestive Heart Failure: No COPD: Yes Cystic Fibrosis: No Diminished Hearing: No Endocrine: No Gastrointestinal Disorders: No Genitourinary: No Headaches: No Herniated Disk: Yes Hypertension: Yes Immune Disorder: No Implanted Vascular Access Dvce: No Insomnia: Yes Musculoskeletal: Yes Neurologic: Yes (NEUROPATHY) Psychiatric: Yes (Hx of treatment for Bipolar Disorder) Reproductive: No Respiratory: Yes Integumentary: Yes (HX MRSA FROM WOUND INFECTION- LEFT LEG ) Immunizations Current: Yes Migraines: Yes Seizures: Yes Tetanus Vaccination: < 5 Years Influenza Vaccination: Yes PNEUMOCCOCAL Vaccine (Year): 1 Past Surgical History Abdominal Surgery: No Cardiac Surgery: No Ear Surgery: No Endocrine Surgery: No Eye Surgery: No Genitourinary Surgery: No Gynecologic Surgery: No Neurologic Surgery: Yes (CERVICAL FUSION) Oral Surgery: No Pacemaker: No Thoracic Surgery: No Other Surgery: Yes ( CARPAL TUNNEL SURGERY BILAT lymph nodes) Social History Alcohol Use: No (denies) Tobacco Use: Yes (1 PPD) Substance Use: Yes (denies) Allergies-Medications (Allergen,Severity, Reaction): Coded Allergies: *MDRO Multi-Drug Resistant Organism (Verified Adverse Reaction, Unknown, ) MRSA PCR screen (nares) POSITIVE - 05/09/16 MRSA (elbow) - 05/14/16 Reported Meds & Prescriptions Reported Meds & Active Scripts Active Risperdal (Risperidone) 1 Mg Tab 1 Mg PO BID 5 Days Reported Advair Diskus Inh (Fluticasone-Salmeterol Inh) 100-50 Mcg/Blist Aer 1 Puff INH BID Rinse mouth after use. Dilantin (Phenytoin Extended) 100 Mg Cap 100 Mg PO TID Diazepam 10 Mg Tab 5 Mg PO TID PRN Gabapentin 600 Mg Tab 600 Mg PO BID Ventolin Hfa 18 GM Inh (Albuterol Sulfate) 90 Mcg/Act Aer 1 Puff INH Q4H PRN Lexapro (Escitalopram Oxalate) 10 Mg Tab 10 Mg PO DAILY Tegretol (Carbamazepine) 200 Mg Tab 200 Mg PO BID Review of Systems Except as stated in HPI: all other systems reviewed are Neg General / Constitutional: No: Fever Cardiovascular: Positive: Chest Pain or Discomfort Respiratory: Positive: Cough, Shortness of Breath, Wheezing Gastrointestinal: No: Nausea, Vomiting, Abdominal Pain Musculoskeletal: No: Edema Physical Exam Narrative GENERAL: Awake, alert, pleasant 51-year-old male who appears his stated age and is in no acute respiratory distress. SKIN: Focused skin assessment warm/dry. HEAD: Atraumatic. Normocephalic. EYES: No injection or drainage. ENT: No nasal bleeding or discharge. Breath smells of tobacco. NECK: Trachea midline. No JVD. CARDIOVASCULAR: Regular rate and rhythm. No murmur appreciated. RESPIRATORY: No accessory muscle use. Few scattered rhonchi with prolonged expiratory phase and wheezes. GASTROINTESTINAL: Abdomen soft, non-tender, nondistended. No rebound tenderness. MUSCULOSKELETAL: No obvious deformities. No clubbing. No cyanosis. No edema. NEUROLOGICAL: Awake and alert. No obvious cranial nerve deficits. Motor grossly within normal limits. Normal speech. PSYCHIATRIC: Appropriate mood and affect; insight and judgment normal. Data Data Last Documented VS Vital Signs Date Time Temp Pulse Resp B/P (MAP) Pulse Ox O2 Delivery O2 Flow Rate FiO2 04/24/17 13:17 59 20 138/91 (107) 100 Room Air 04/24/17 10:29 96.1 Orders Orders Ecg Monitoring (04/24/17 12:51) Oximetry (04/24/17 12:51) Chest, Single Ap (04/24/17 12:51) Sodium Chloride 0.9% Flush (Ns Flush) (04/24/17 13:00) Albuterol-Ipratropium Neb (Duoneb Neb) (04/24/17 13:00) Lidocaine Pf 4% Neb (Lidocaine Pf 4% Neb (04/24/17 13:00) Prednisone (Deltasone) (04/24/17 13:00) [facility] Medical Decision Making Medical Screen Exam Complete: Yes Emergency Medical Condition: Yes Medical Record Reviewed: Yes Interpretation(s) Last Impressions Chest X-Ray 04/24/17 1251 Signed Impressions: Service Date/Time: Monday, April 24, 2017 13:00 - CONCLUSION: No acute disease. Yusef Vo MD Differential Diagnosis Differential diagnosis includes bronchitis, pneumonia, pleural effusion, congestive heart failure, pulmonary embolism, viral syndrome. Narrative Course Chest x-ray was obtained. The patient was administered prednisone 50 mg orally and duo nebs 2 with respiratory lidocaine. Chest x-rays unremarkable, no evidence of pneumonia. Patient appears to have bronchitis versus COPD exacerbation. The patient will be treated with steroids, albuterol inhaler, promethazine with codeine, and Zithromax. He is advised to follow-up with his primary physician. Return if symptoms worsen or progress. Diagnosis Primary Impression: Bronchitis Patient Instructions: General Instructions Additional Instructions: Medications as directed. Stop smoking. Follow-up with your primary physician. Please provide the patient a copy of his chest x-ray at discharge. Return if symptoms worsen or progress. Med/Other Pt SpecificInfo: Prescription(s) given Scripts Azithromycin (Zithromax Z-Rigo) 250 Mg Dspk 250 MG PO DIRECTED for Infection, #1 DSPK 0 Refills 500 MG (2 tabs) day 1, then 1 tab days 2-5. Prov: Sheng Elizondo MD 04/24/17 Albuterol 18 GM Inh (Ventolin Hfa 18 GM Inh) 90 Mcg/Act Aer 2 PUFF INH Q6H Y for SHORTNESS OF BREATH, #1 INHALER 0 Refills Prov: Sheng Elizondo MD 04/24/17 Promethazine-Codeine Liq (Promethazine-Codeine Liq) 6.25-10 Mg/5 Ml Syrp 5 ML PO Q6H Y for COUGH AND/OR COLD SYMPTOMS, #240 ML 0 Refills Prov: Sheng Elizondo MD 04/24/17 Prednisone (Deltasone) 20 Mg Tab 40 MG PO DAILY for 4 Days, #8 TAB 0 Refills Prov: Sheng Elizondo MD 04/24/17 Disposition: 01 DISCHARGE HOME Condition: Stable Sheng Elizondo MD Apr 24, 2017 13:02
[2017-04-24] MEDS: RESP: ALBUTEROL 2.5 MG/IPRATROPIUM 0.5 MG NEB (SCH) INH (13:09)
--- NOTE | 2017-04-24 13:12 | RADRPT ---
EXAM DATE/TIME: 04/24/2017 13:00 [facility] COMPARISON: CHEST SINGLE AP, April 07, 2017, 23:40. INDICATIONS : Short of breath and cough for 4 days. MEDICAL HISTORY : Diabetes mellitus type 2. Cardiovascular disease Hypertension. SURGICAL HISTORY : Fusion, cervical. ENCOUNTER: Initial ACUITY: 4 - 6 days PAIN SCORE: 3/10 LOCATION: Bilateral chest FINDINGS: A single view of the chest demonstrates the lungs to be symmetrically aerated without evidence of mas s, infiltrate or effusion. The cardiomediastinal contours are unremarkable. Osseous structures are intact. CONCLUSION: No acute disease. Yusef Vo MD on April 24, 2017 at 13:10 Board Certified Radiologist. This report was verified electronically.
[2017-04-24 13:17] VITALS: BP 138/91; PULSE 59; RESP 20; O2SAT 100
[2017-04-24] MEDS ORDERED: VENTAER INH (14:18)
[2017-04-24] MEDS ORDERED: PRED-503 PO (14:18)
[2017-04-24] MEDS ORDERED: ZITHTAB PO (14:18)
[2017-04-24] MEDS ORDERED: PROM6.256 PO (14:18)
[2017-04-24 14:32] VITALS: BP 132/76
== END 2017-04-24 14:33 | disposition home or self-care (01) ==
LOC: PHED 09:49 → PHEFT 14:33
DX: J40 Bronchitis, not specified as acute or chronic (principal); I10 Essential (primary) hypertension; I25.10 Atherosclerotic heart disease of native coronary artery without angina pectoris; J44.9 Chronic obstructive pulmonary disease, unspecified; Z87.891 Personal history of nicotine dependence
CPT/HCPCS: 71010; 94640; 94664; 99284; J7512

== ENCOUNTER 2017-08-03 10:23 | Emergency (ER) | payer MEDICARE, OTHER ==
[~2017-08-03] VITALS: Ht 193 cm; Wt 68.0 kg
[~2017-08-03 10:23] MED LIST changes: -BUSP15TA PO; -CEPH-460 PO; -CIPR500T2 PO; -CLON1TAB PO; -CYCL1TAB29 PO; -HYDR25TA5 PO; -IPRAAER INH; -OXYC-396 PO; +PRED-503 PO; +PROM6.256 PO; +ZITHTAB PO
[2017-08-03 10:27] VITALS: BP 137/89; PULSE 78; RESP 16; TEMP 98.3; O2SAT 96
[2017-08-03] MEDS ORDERED: BUPR4MIS SL (10:43)
[2017-08-03] MEDS ORDERED: ZIPR20 PO (10:43)
[2017-08-03] MEDS ORDERED: PRED20 PO (10:49)
[2017-08-03] MEDS ORDERED: LEVA500T33 PO (10:49)
--- NOTE | 2017-08-03 10:49 | PD ---
HPI Chief Complaint: Cold / Flu Symptoms Time Seen by Provider: 21:14 Travel History International Travel<30 days: No Contact w/Intl Traveler<30days: No Traveled to known affect area: No History of Present Illness HPI 51-year-old male with history of COPD, one pack per day smoker and recent bronchitis presents with chief complaint of cough times one month. He reports colored sputum production and mild shortness of breath or coughing episode. He was treated with azithromycin eyes PCP approximately one month ago for same complaint. He reports symptoms slightly improved but quickly returned after antibiotics completed. He reports previous hospitalizations for pneumonia in the past. He denies any other symptoms. No aggravating or alleviating factors. PFSH Past Medical History Hx Anticoagulant Therapy: No ADHD: Yes Arthritis: No Asthma: No Autoimmune Disease: No Blood Disorders: No Bipolar Disorder: Yes Anxiety: Yes Depression: Yes Heart Rhythm Problems: No Cancer: No Cardiovascular Problems: Yes (htn on meds) High Cholesterol: Yes Chest Pain: No Congestive Heart Failure: No COPD: Yes Cystic Fibrosis: No Diminished Hearing: No Endocrine: No Gastrointestinal Disorders: No Genitourinary: No Headaches: No Herniated Disk: Yes Hypertension: Yes Immune Disorder: No Implanted Vascular Access Dvce: No Insomnia: Yes Musculoskeletal: Yes Neurologic: Yes (NEUROPATHY) Psychiatric: Yes (Hx of treatment for Bipolar Disorder) Reproductive: No Respiratory: Yes Integumentary: Yes (HX MRSA FROM WOUND INFECTION- LEFT LEG ) Immunizations Current: Yes Migraines: Yes Seizures: Yes PNEUMOCCOCAL Vaccine (Year): 1 Past Surgical History Abdominal Surgery: No Cardiac Surgery: No Ear Surgery: No Endocrine Surgery: No Eye Surgery: No Genitourinary Surgery: No Gynecologic Surgery: No Neurologic Surgery: Yes (CERVICAL FUSION) Oral Surgery: No Pacemaker: No Thoracic Surgery: No Other Surgery: Yes ( CARPAL TUNNEL SURGERY BILAT lymph nodes) Social History Alcohol Use: No (denies) Tobacco Use: Yes (1 PPD) Substance Use: Yes (denies) Allergies-Medications (Allergen,Severity, Reaction): Coded Allergies: *MDRO Multi-Drug Resistant Organism (Verified Adverse Reaction, Unknown, 08/03/17) MRSA PCR screen (nares) POSITIVE - 05/09/16 MRSA (elbow) - 05/14/16 Reported Meds & Prescriptions Reported Meds & Active Scripts Active Prednisone 20 Mg Tab 40 Mg PO DAILY Take 40 mg (2 tablets) daily for 5 days Levaquin (Levofloxacin) 500 Mg Tablet 500 Mg PO DAILY 7 Days Ventolin Hfa 18 GM Inh (Albuterol Sulfate) 90 Mcg/Act Aer 2 Puff INH Q6H PRN Reported Suboxone Sublingual Film (Buprenorphine-Naloxone Sublingual Film) 4-1 Mg Film 1 Film SL Unique ID number required: Geodon (Ziprasidone) 20 Mg Cap 20 Mg PO BID Advair Diskus Inh (Fluticasone-Salmeterol Inh) 100-50 Mcg/Blist Aer 1 Puff INH BID Rinse mouth after use. Tegretol (Carbamazepine) 200 Mg Tab 200 Mg PO BID Review of Systems Except as stated in HPI: all other systems reviewed are Neg Respiratory: Positive: Cough Physical Exam Narrative GENERAL: Alert male. Nontoxic appearing. SKIN: Warm and dry. No rash. HEAD: Normocephalic. EYES: No scleral icterus. No injection or drainage. NECK: Supple, trachea midline. No JVD or lymphadenopathy. CARDIOVASCULAR: Regular rate and rhythm without murmurs, gallops, or rubs. RESPIRATORY: Breath sounds equal bilaterally. No accessory muscle use. Rhonchorous breath sounds. Harsh sounding cough. GASTROINTESTINAL: Abdomen soft, non-tender, nondistended. MUSCULOSKELETAL: No cyanosis, or edema. BACK: Nontender without obvious deformity. No CVA tenderness. Data Data Last Documented VS Vital Signs Date Time Temp Pulse Resp B/P (MAP) Pulse Ox O2 Delivery O2 Flow Rate FiO2 08/03/17 10:43 Room Air 08/03/17 10:27 98.3 78 16 137/89 (105) 96 Orders Orders Ed Discharge Order (08/03/17 10:50) [facility] Medical Decision Making Medical Screen Exam Complete: Yes Emergency Medical Condition: Yes Differential Diagnosis Bronchitis, pneumonia, influenza Narrative Course 51-year-old male with history of COPD presents with productive cough 1 month. His vital signs are stable. He is afebrile. He is nontoxic appearing. He has rhonchorous breath sounds. He was recently treated with azithromycin with minimal improvement. He'll be treated with Levaquin, steroids and bronchodilators instruct his primary doctor. Diagnosis Primary Impression: Bronchitis Referrals: Primary Care Physician Additional Instructions: Stay well hydrated by drinking plenty fluids. Follow-up with her primary doctor. Scripts Prednisone (Prednisone) 20 Mg Tab 40 MG PO DAILY, #10 TAB 0 Refills Take 40 mg (2 tablets) daily for 5 days Prov: Veronica Herman 08/03/17 Levofloxacin (Levaquin) 500 Mg Tablet 500 MG PO DAILY for Infection for 7 Days, #7 TAB 0 Refills Prov: Veronica Herman 08/03/17 Disposition: 01 DISCHARGE HOME Condition: Stable Veronica Herman Aug 03, 2017 10:49
== END 2017-08-03 11:02 | disposition home or self-care (01) ==
LOC: PHEFT 10:23
DX: J40 Bronchitis, not specified as acute or chronic (principal); J44.9 Chronic obstructive pulmonary disease, unspecified; F90.9 Attention-deficit hyperactivity disorder, unspecified type; F31.9 Bipolar disorder, unspecified; F41.9 Anxiety disorder, unspecified; I10 Essential (primary) hypertension; E78.00 Pure hypercholesterolemia, unspecified; G62.9 Polyneuropathy, unspecified; R56.9 Unspecified convulsions
CPT/HCPCS: 99284

== ENCOUNTER 2017-11-21 08:17 | Emergency (ER) | payer MEDICARE, OTHER ==
[~2017-11-21] VITALS: Ht 193 cm; Wt 68.0 kg
[~2017-11-21 08:17] MED LIST changes: +BUPR4MIS SL; -DIAZ10TA PO; -DILA100C PO; -GABA600T PO; +LEVA500T33 PO; -LEXA10TA PO; -PRED-503 PO; +PRED20 PO; -PROM6.256 PO; -RISP1 PO; +ZIPR20 PO; -ZITHTAB PO
[2017-11-21 08:20] VITALS: BP 148/83; PULSE 57; RESP 18; TEMP 97.9; O2SAT 98
[2017-11-21] MEDS ORDERED: PANTOPRAZOLE SODIUM 40 MG VIAL IV PUSH ONE (08:30)
[2017-11-21] MEDS ORDERED: SODIUM CHLOR 0.9% 1000 ML INJ 1,000 ML IV ONE ×2 (08:30)
[2017-11-21] MEDS ORDERED: ONDANSETRON HCL 4 MG/2 ML VIAL IV PUSH ONE ×2 (08:30→12:15)
--- NOTE | 2017-11-21 08:33 | PD ---
HPI Chief Complaint: GI Complaint Time Seen by Provider: 08:25 Travel History International Travel<30 days: No Contact w/Intl Traveler<30days: No Traveled to known affect area: No History of Present Illness HPI This 51 year male presents by paramedics. He says that he's been vomiting all night. Yesterday he ate an omelette at in the morning and around lunchtime he started having some epigastric discomfort which has been persistent. Around 9: 30 last night he started vomiting and has been unable to stop vomiting. He does have a history of substance abuse and takes Suboxone daily. He has had his Suboxone today. There has not been any diarrhea. He also has history of bipolar disease and takes Geodon. PFSH Past Medical History Hx Anticoagulant Therapy: No ADHD: Yes Arthritis: No Asthma: No Autoimmune Disease: No Blood Disorders: No Bipolar Disorder: Yes Anxiety: Yes Depression: Yes Heart Rhythm Problems: No Cancer: No Cardiovascular Problems: Yes (htn on meds) High Cholesterol: Yes Chest Pain: No Congestive Heart Failure: No COPD: Yes Cystic Fibrosis: No Diminished Hearing: No Endocrine: No Gastrointestinal Disorders: No Genitourinary: No Headaches: No Herniated Disk: Yes Hypertension: Yes Immune Disorder: No Implanted Vascular Access Dvce: No Insomnia: Yes Musculoskeletal: Yes Neurologic: Yes (Neuropathy ) Psychiatric: Yes (Bipolar ) Reproductive: No Respiratory: Yes Integumentary: Yes (Lt. leg wound MRSA) Immunizations Current: Yes Migraines: Yes Seizures: Yes Tetanus Vaccination: < 5 Years Influenza Vaccination: Yes PNEUMOCCOCAL Vaccine (Year): 1 Past Surgical History Abdominal Surgery: No Cardiac Surgery: No Ear Surgery: No Endocrine Surgery: No Eye Surgery: No Genitourinary Surgery: No Gynecologic Surgery: No Neurologic Surgery: Yes (Cervical fusion ) Oral Surgery: No Pacemaker: No Thoracic Surgery: No Other Surgery: Yes (BL carpal tunnel, lymph nodes) Social History Alcohol Use: No Tobacco Use: Yes (1 PPD) Substance Use: No Allergies-Medications (Allergen,Severity, Reaction): Coded Allergies: *MDRO Multi-Drug Resistant Organism (Verified Adverse Reaction, Unknown, 08/03/17) MRSA PCR screen (nares) POSITIVE - 05/09/16 MRSA (elbow) - 05/14/16 Reported Meds & Prescriptions Reported Meds & Active Scripts Active Reported Suboxone Sublingual Film (Buprenorphine-Naloxone Sublingual Film) 4-1 Mg Film 8 Mg SL TID Unique ID number required: Heri (Ziprasidone) 20 Mg Cap 20 Mg PO DAILY Review of Systems General / Constitutional: No: Fever, Chills Eyes: No: Diploplia, Blurred Vision HENT: No: Headaches, Vertigo Cardiovascular: No: Chest Pain or Discomfort, Palpitations Respiratory: No: Cough, Shortness of Breath Gastrointestinal: Positive: Nausea, Vomiting, Abdominal Pain, No: Diarrhea Genitourinary: No: Urgency, Frequency Musculoskeletal: No: Myalgias, Arthralgias Skin: No Rash, No Itching Neurologic: No: Weakness, Dizziness Psychiatric: No: Anxiety Hematologic/Lymphatic: No: Easy Bruising Physical Exam Narrative GENERAL: Well-developed male SKIN: Focused skin assessment warm/dry. HEAD: Atraumatic. Normocephalic. EYES: Pupils equal and round. No scleral icterus. No injection or drainage. ENT: No nasal bleeding or discharge. Mucous membranes pink and moist. NECK: Trachea midline. No JVD. CARDIOVASCULAR: Regular rate and rhythm. No murmur appreciated. RESPIRATORY: No accessory muscle use. Clear to auscultation. Breath sounds equal bilaterally. GASTROINTESTINAL: Abdomen soft, there is epigastric tenderness, nondistended. Hepatic and splenic margins not palpable. MUSCULOSKELETAL: No obvious deformities. No clubbing. No cyanosis. No edema. NEUROLOGICAL: Awake and alert. No obvious cranial nerve deficits. Motor grossly within normal limits. Normal speech. PSYCHIATRIC: Appropriate mood and affect; insight and judgment normal. Data Data Last Documented VS Vital Signs Date Time Temp Pulse Resp B/P (MAP) Pulse Ox O2 Delivery O2 Flow Rate FiO2 11/21/17 11:20 64 16 140/80 (100) 97 Room Air 11/21/17 08:20 97.9 Orders Orders Complete Blood Count With Diff (11/21/17 08:29) Comprehensive Metabolic Panel (11/21/17 08:29) Lipase (11/21/17 08:29) Sodium Chlor 0.9% 1000 Ml Inj (Ns 1000 M (11/21/17 08:30) Sodium Chlor 0.9% 1000 Ml Inj (Ns 1000 M (11/21/17 08:30) Ondansetron Inj (Zofran Inj) (11/21/17 08:30) Pantoprazole Inj (Protonix Inj) (11/21/17 08:30) Ondansetron Inj (Zofran Inj) (11/21/17 12:15) Labs Laboratory Tests Test 11/21/17 09:00 White Blood Count 13.7 TH/MM3 Red Blood Count 5.01 MIL/MM3 Hemoglobin 15.4 GM/DL Hematocrit 44.5 % Mean Corpuscular Volume 88.7 FL Mean Corpuscular Hemoglobin 30.7 PG Mean Corpuscular Hemoglobin Concent 34.6 % Red Cell Distribution Width 13.3 % Platelet Count 347 TH/MM3 Mean Platelet Volume 7.7 FL Neutrophils (%) (Auto) 84.0 % Lymphocytes (%) (Auto) 10.9 % Monocytes (%) (Auto) 3.6 % Eosinophils (%) (Auto) 0.2 % Basophils (%) (Auto) 1.3 % Neutrophils # (Auto) 11.5 TH/MM3 Lymphocytes # (Auto) 1.5 TH/MM3 Monocytes # (Auto) 0.5 TH/MM3 Eosinophils # (Auto) 0.0 TH/MM3 Basophils # (Auto) 0.2 TH/MM3 CBC Comment DIFF FINAL Differential Comment Blood Urea Nitrogen 13 MG/DL Creatinine 0.76 MG/DL Random Glucose 115 MG/DL Total Protein 7.4 GM/DL Albumin 3.6 GM/DL Calcium Level 9.4 MG/DL Alkaline Phosphatase 99 U/L Aspartate Amino Transf (AST/SGOT) 31 U/L Alanine Aminotransferase (ALT/SGPT) 27 U/L Total Bilirubin 0.7 MG/DL Sodium Level 137 MEQ/L Potassium Level 4.1 MEQ/L Chloride Level 104 MEQ/L Carbon Dioxide Level 24.7 MEQ/L Anion Gap 8 MEQ/L Estimat Glomerular Filtration Rate 109 ML/MIN Lipase 93 U/L [facility] Medical Decision Making Medical Screen Exam Complete: Yes Emergency Medical Condition: Yes Medical Record Reviewed: Yes Differential Diagnosis Differential includes acute gastritis, gastroenteritis, food poisoning Narrative Course She has been given IV fluids and Zofran with improvement. He has some residual nausea and will be given additional Zofran. He is stable for discharge Diagnosis Primary Impression: Acute gastritis Scripts Ondansetron Odt (Zofran Odt) 4 Mg Tab 4 MG SL Q8HR Y for Nausea/Vomiting, #10 TAB 0 Refills Prov: Momo Rock MD 11/21/17 Disposition: 01 DISCHARGE HOME Condition: Stable Momo Rock MD Nov 21, 2017 08:33
[2017-11-21 09:06] LABS: AUTOMATED NEUTROPHIL # 11.5 TH/MM3 (1.8-7.7); BASOPHIL # 0.2 TH/MM3 (0-0.2); BASOPHIL % 1.3 % (0.0-2.0); EOSINOPHIL % 0.2 % (0.0-4.0); HEMATOCRIT 44.5 % (39.0-51.0); HEMOGLOBIN 15.4 GM/DL (13.0-17.0); LYMPH % 10.9 % (9.0-44.0); LYMPHOCYTE # 1.5 TH/MM3 (1.0-4.8); MEAN CELL VOLUME 88.7 FL (80.0-100.0); MEAN CORPUSCULAR HEMOGLOBIN 30.7 PG (27.0-34.0); MEAN CORPUSCULAR HGB CONC 34.6 % (32.0-36.0); MEAN PLATELET VOLUME 7.7 FL (7.0-11.0); MONO % 3.6 % (0.0-8.0); MONOCYTE # 0.5 TH/MM3 (0-0.9); PLATELET COUNT 347 TH/MM3 (150-450); RED BLOOD COUNT 5.01 MIL/MM3 (4.50-5.90); RED CELL DISTRIBUTION WIDTH 13.3 % (11.6-17.2); WHITE BLOOD COUNT 13.7 TH/MM3 (4.0-11.0)
[2017-11-21 09:12] LABS: CHLORIDE 104 MEQ/L (98-107); SODIUM (NA) 137 MEQ/L (136-145)
[2017-11-21 09:15] LABS: CALCIUM 9.4 MG/DL (8.5-10.1)
[2017-11-21 09:16] LABS: ALBUMIN 3.6 GM/DL (3.4-5.0); BICARBONATE 24.7 MEQ/L (21.0-32.0); BLOOD UREA NITROGEN 13 MG/DL (7-18); GLUCOSE,RANDOM 115 MG/DL (74-106)
[2017-11-21 09:18] LABS: ALT (GPT) 27 U/L (12-78)
[2017-11-21 09:19] LABS: AST (GOT) 31 U/L (15-37); CREATININE 0.76 MG/DL (0.60-1.30); GLOMERULAR FILTRATION RATE 109 ML/MIN (>89)
[2017-11-21 09:20] LABS: TOTAL BILIRUBIN ADULT 0.7 MG/DL (0.2-1.0); TOTAL PROTEIN 7.4 GM/DL (6.4-8.2)
[2017-11-21 09:21] LABS: ALKALINE PHOSPHATASE 99 U/L (45-117)
[2017-11-21 09:35] VITALS: BP 131/69; PULSE 52; RESP 14; O2SAT 97
[2017-11-21 10:30] VITALS: BP 140/77; PULSE 64; RESP 14; O2SAT 97
[2017-11-21 11:20] VITALS: BP 140/80; PULSE 64; RESP 16; O2SAT 97
[2017-11-21] MEDS ORDERED: ZOFR4TAB3 SL (12:22)
== END 2017-11-21 12:44 | disposition home or self-care (01) ==
LOC: PHED 08:17
DX: K29.00 Acute gastritis without bleeding (principal); F31.9 Bipolar disorder, unspecified; F90.9 Attention-deficit hyperactivity disorder, unspecified type; F41.9 Anxiety disorder, unspecified; I10 Essential (primary) hypertension; E78.00 Pure hypercholesterolemia, unspecified; J44.9 Chronic obstructive pulmonary disease, unspecified; G62.9 Polyneuropathy, unspecified; Z86.69 Personal history of other diseases of the nervous system and sense organs
CPT/HCPCS: 80053; 83690; 85025; 96361; 96374; 96375; 96376; 99284; C9113; J2405; J7030

== ENCOUNTER 2018-01-11 09:36 | Emergency (ER) | payer MEDICARE, OTHER ==
[~2018-01-11] VITALS: Ht 193 cm; Wt 68.0 kg
[~2018-01-11 09:36] MED LIST changes: -ADVA100A INH; -LEVA500T33 PO; -PRED20 PO; -TEGR200T PO; -VENTAER INH; +ZOFR4TAB3 SL
[2018-01-11] MEDS ORDERED: GABA800T PO (09:43)
[2018-01-11 09:46] VITALS: BP 159/82; PULSE 49; RESP 16; TEMP 96.3; O2SAT 96
--- NOTE | 2018-01-11 09:48 | PD ---
HPI Chief Complaint: Abdominal Pain Time Seen by Provider: 09:46 Travel History International Travel<30 days: No Contact w/Intl Traveler<30days: No Traveled to known affect area: No History of Present Illness HPI Patient comes in complaining of feeling shaky, nauseous, abdominal discomfort. Abdominal discomfort sharp pain, 5 out of 10, nonradiating, denies any association with vomiting or diarrhea. Patient has an associated nonproductive cough, patient admits to being a half a pack a day smoker, No known drug allergy Past medical history significant for corrective lenses, neuropathy, seizures, cervical fusion, migraine, hypertension, hypercholesterolemia, COPD, carpal tunnel release, bipolar, 1 pack a day smoker PFSH Past Medical History Hx Anticoagulant Therapy: No ADHD: Yes Arthritis: No Asthma: No Autoimmune Disease: No Blood Disorders: No Bipolar Disorder: Yes Anxiety: Yes Depression: Yes Heart Rhythm Problems: No Cancer: No Cardiovascular Problems: Yes (htn on meds) High Cholesterol: Yes Chest Pain: No Congestive Heart Failure: No COPD: Yes Cystic Fibrosis: No Diminished Hearing: No Endocrine: No Gastrointestinal Disorders: No Genitourinary: No Headaches: No Herniated Disk: Yes Hypertension: Yes Immune Disorder: No Implanted Vascular Access Dvce: No Insomnia: Yes Musculoskeletal: Yes Neurologic: Yes (Neuropathy ) Psychiatric: Yes (Bipolar ) Reproductive: No Respiratory: Yes Integumentary: Yes (Lt. leg wound MRSA) Immunizations Current: Yes Migraines: Yes Seizures: Yes PNEUMOCCOCAL Vaccine (Year): 1 Past Surgical History Abdominal Surgery: No Cardiac Surgery: No Ear Surgery: No Endocrine Surgery: No Eye Surgery: No Genitourinary Surgery: No Gynecologic Surgery: No Neurologic Surgery: Yes (Cervical fusion ) Oral Surgery: No Pacemaker: No Thoracic Surgery: No Other Surgery: Yes (BL carpal tunnel, lymph nodes) Social History Alcohol Use: No Tobacco Use: Yes (1 PPD) Substance Use: No Allergies-Medications (Allergen,Severity, Reaction): Coded Allergies: *MDRO Multi-Drug Resistant Organism (Verified Adverse Reaction, Unknown, ) MRSA PCR screen (nares) POSITIVE - 05/09/16 MRSA (elbow) - 05/14/16 Reported Meds & Prescriptions Reported Meds & Active Scripts Active Reported Gabapentin 800 Mg Tab 800 Mg PO TID Suboxone Sublingual Film (Buprenorphine-Naloxone Sublingual Film) 4-1 Mg Film 8 Mg SL TID Unique ID number required: Heri (Ziprasidone) 20 Mg Cap 20 Mg PO DAILY Review of Systems General / Constitutional: Positive: Chills, No: Fever Eyes: No: Visual changes HENT: No: Headaches Cardiovascular: No: Chest Pain or Discomfort Respiratory: Positive: Cough Gastrointestinal: Positive: Nausea Genitourinary: No: Dysuria Musculoskeletal: No: Pain Skin: No Rash Neurologic: No: Weakness Psychiatric: No: Depression Endocrine: No: Polydipsia Hematologic/Lymphatic: No: Easy Bruising Physical Exam Narrative GENERAL: SKIN: Warm and dry. HEAD: Atraumatic. Normocephalic. EYES: Pupils equal and round. No scleral icterus. No injection or drainage. ENT: No nasal bleeding or discharge. Mucous membranes pink and moist. NECK: Trachea midline. No JVD. CARDIOVASCULAR: Regular rate and rhythm. RESPIRATORY: No accessory muscle use. Clear to auscultation. Breath sounds equal bilaterally. GASTROINTESTINAL: Abdomen soft, mild tenderness to percussion over epigastrium , nondistended. MUSCULOSKELETAL: Extremities without clubbing, cyanosis, or edema. No obvious deformities. NEUROLOGICAL: Awake and alert. No obvious cranial nerve deficits. Motor grossly within normal limits. Five out of 5 muscle strength in the arms and legs. Normal speech. PSYCHIATRIC: Appropriate mood and affect; insight and judgment normal. Data Data Last Documented VS Vital Signs Date Time Temp Pulse Resp B/P (MAP) Pulse Ox O2 Delivery O2 Flow Rate FiO2 01/11/18 10:34 46 16 149/84 (105) 100 Room Air 01/11/18 09:46 96.3 Orders Orders Complete Blood Count With Diff (01/11/18 09:55) Comprehensive Metabolic Panel (01/11/18 09:55) Lipase (01/11/18 09:55) Urinalysis - C+S If Indicated (01/11/18 09:55) Ct Abd/Pel W/O Iv Contrast (01/11/18 09:55) Iv Access Insert/Monitor (01/11/18 09:55) Ecg Monitoring (01/11/18 09:55) Oximetry (01/11/18 09:55) NPO (01/11/18 09:55) Morphine Inj (Morphine Inj) (01/11/18 10:00) Ondansetron Inj (Zofran Inj) (01/11/18 10:00) Sodium Chloride 0.9% Flush (Ns Flush) (01/11/18 10:00) Drug Screen, Random Urine (01/11/18 10:00) Alcohol (Ethanol) (01/11/18 10:00) Prochlorperazine Inj (Compazine Inj) (01/11/18 11:00) Diphenhydramine Inj (Benadryl Inj) (01/11/18 11:00) Labs Laboratory Tests Test 01/11/18 10:05 White Blood Count 14.3 TH/MM3 Red Blood Count 5.24 MIL/MM3 Hemoglobin 16.4 GM/DL Hematocrit 46.7 % Mean Corpuscular Volume 89.1 FL Mean Corpuscular Hemoglobin 31.3 PG Mean Corpuscular Hemoglobin Concent 35.1 % Red Cell Distribution Width 13.2 % Platelet Count 291 TH/MM3 Mean Platelet Volume 9.0 FL Neutrophils (%) (Auto) 78.6 % Lymphocytes (%) (Auto) 15.2 % Monocytes (%) (Auto) 4.6 % Eosinophils (%) (Auto) 0.6 % Basophils (%) (Auto) 1.0 % Neutrophils # (Auto) 11.2 TH/MM3 Lymphocytes # (Auto) 2.2 TH/MM3 Monocytes # (Auto) 0.7 TH/MM3 Eosinophils # (Auto) 0.1 TH/MM3 Basophils # (Auto) 0.1 TH/MM3 CBC Comment DIFF FINAL Differential Comment Blood Urea Nitrogen 12 MG/DL Creatinine 1.00 MG/DL Random Glucose 117 MG/DL Total Protein 7.8 GM/DL Albumin 3.9 GM/DL Calcium Level 9.7 MG/DL Alkaline Phosphatase 107 U/L Aspartate Amino Transf (AST/SGOT) 22 U/L Alanine Aminotransferase (ALT/SGPT) 24 U/L Total Bilirubin 0.5 MG/DL Sodium Level 142 MEQ/L Potassium Level 3.6 MEQ/L Chloride Level 108 MEQ/L Carbon Dioxide Level 21.8 MEQ/L Anion Gap 12 MEQ/L Estimat Glomerular Filtration Rate 79 ML/MIN Lipase 115 U/L Ethyl Alcohol Level LESS THAN 3 MG/DL MDM Medical Decision Making Medical Screen Exam Complete: Yes Emergency Medical Condition: Yes Medical Record Reviewed: Yes Differential Diagnosis Withdrawal syndrome versus pancreatitis versus gastritis/peptic syndrome Narrative Course Reactive leukocytosis of 14,000 without any left shift, no evidence of any anemia and normal platelet count Electrolytes are all within normal limits, normal kidney liver and pancreatic functions Alcohol is less than 3 Patient is given a history of previous opiate abuse, he is currently on a Suboxone program. Patient is able to tolerate p.o. after he was given Compazine and Benadryl, he is also much calmer and now feels better and is asking to go home. Patient will be discharged Diagnosis Primary Impression: Nausea secondary to withdrawal Patient Instructions: Acute Nausea and Vomiting (ED), General Instructions Scripts Promethazine Supp (Phenergan Supp) 25 Mg Supp 25 MG RECTAL Q6H Y for NAUSEA OR VOMITING, #10 SUPP 0 Refills Prov: Naresh Romero MD 01/11/18 Disposition: 01 DISCHARGE HOME Condition: Stable Naresh Romero MD Jan 11, 2018 09:48
[2018-01-11] MEDS ORDERED: SODIUM CHLORIDE 0.9% FLUSH 10 ML FLUSH IV FLUSH PRN (10:00)
[2018-01-11] MEDS: MORPHINE SULFATE 4 MG/ML INJ IV PUSH ONE ×2 (10:00→10:02)
[2018-01-11] MEDS ORDERED: ONDANSETRON HCL 4 MG/2 ML VIAL IVP ONE (10:00)
[2018-01-11 10:14] LABS: AUTOMATED NEUTROPHIL # 11.2 TH/MM3 (1.8-7.7); BASOPHIL # 0.1 TH/MM3 (0-0.2); EOSINOPHIL # 0.1 TH/MM3 (0-0.4); EOSINOPHIL % 0.6 % (0.0-4.0); HEMATOCRIT 46.7 % (39.0-51.0); HEMOGLOBIN 16.4 GM/DL (13.0-17.0); LYMPH % 15.2 % (9.0-44.0); LYMPHOCYTE # 2.2 TH/MM3 (1.0-4.8); MEAN CELL VOLUME 89.1 FL (80.0-100.0); MEAN CORPUSCULAR HEMOGLOBIN 31.3 PG (27.0-34.0); MEAN CORPUSCULAR HGB CONC 35.1 % (32.0-36.0); MONO % 4.6 % (0.0-8.0); MONOCYTE # 0.7 TH/MM3 (0-0.9); NEUT % 78.6 % (16.0-70.0); PLATELET COUNT 291 TH/MM3 (150-450); RED BLOOD COUNT 5.24 MIL/MM3 (4.50-5.90); RED CELL DISTRIBUTION WIDTH 13.2 % (11.6-17.2); WHITE BLOOD COUNT 14.3 TH/MM3 (4.0-11.0)
[2018-01-11 10:20] VITALS: RESP 16; O2SAT 96
[2018-01-11 10:23] LABS: CHLORIDE 108 MEQ/L (98-107); SODIUM (NA) 142 MEQ/L (136-145)
[2018-01-11 10:27] LABS: ALBUMIN 3.9 GM/DL (3.4-5.0); BICARBONATE 21.8 MEQ/L (21.0-32.0); BLOOD UREA NITROGEN 12 MG/DL (7-18); CALCIUM 9.7 MG/DL (8.5-10.1); GLUCOSE,RANDOM 117 MG/DL (74-106)
[2018-01-11 10:30] LABS: ALT (GPT) 24 U/L (12-78); AST (GOT) 22 U/L (15-37); GLOMERULAR FILTRATION RATE 79 ML/MIN (>89)
[2018-01-11 10:32] LABS: TOTAL BILIRUBIN ADULT 0.5 MG/DL (0.2-1.0); TOTAL PROTEIN 7.8 GM/DL (6.4-8.2)
[2018-01-11 10:33] LABS: ALKALINE PHOSPHATASE 107 U/L (45-117)
[2018-01-11 10:34] VITALS: BP 149/84; PULSE 46; RESP 16; O2SAT 100
--- NOTE | 2018-01-11 10:43 | RADRPT ---
EXAM DATE: 01/11/2018 10:37 AM EDT AGE/SEX: 52 years / Male INDICATIONS: Diffuse abdominal pain. Nausea and vomiting. CLINICAL DATA: This is the patient's initial encounter. Patient reports that signs and symptoms have been present for 1 day and indicates a pain score of 7/10. MEDICAL/SURGICAL HISTORY: Chronic obstructive pulmonary disease. Hypertension. Seizure. Fusio n, cervical. RADIATION DOSE: 5.91 CTDI (mGy) ; Patient motion COMPARISON: No prior [facility] exams available for comparison. TECHNIQUE: Multiple contiguous axial images were obtained through the abdomen. Images were obtained using multiple row detector helical technique. Using dose reduction techniques, radiation dose was ke pt as low as reasonably achievable to obtain optimal diagnostic quality images. FINDINGS: Lower Lungs: The visualized lower lungs are clear. Liver: The liver has a homogeneous density without space-occupying lesion. There is no dilation of th e biliary tree. Spleen: Homogeneous density without enlargement. Pancreas: Unremarkable without mass or calcification. Kidneys: Normal in size and shape. No evidence of mass or hydronephrosis. Adrenal Glands: Unremarkable. Aorta: The aorta and proximal iliac vessels are grossly unremarkable without aneurysmal dilation. Bowel/Mesentery: The bowel loops are grossly unremarkable. The cecum and sigmoid colon have a normal configuration. Abdominal Wall: Intact. Retroperitoneum: No evidence of adenopathy in the retrocrural, para-aortic, or deep pelvic regions. Bladder: Contours are smooth. Reproductive Organs: No abnormal masses or calcifications seen. Inguinal: The inguinal region is unremarkable without evidence of adenopathy. Bony Structures: Minimal degenerative changes lower lumbar spine. CONCLUSION: 1. Negative for an acute process. I do not see inflammatory changes in the abdomen. 2. There is no abscess or free air. Electronically signed by: Umesh Kamara MD 01/11/2018 10:41 AM EDT
[2018-01-11] MEDS ORDERED: PROCHLORPERAZINE INJ 10 MG/2 ML VIAL IV PUSH ONE (11:00)
[2018-01-11] MEDS ORDERED: diphenhydrAMINE HCL 50 MG/ML VIAL IV PUSH ONE (11:00)
[2018-01-11] MEDS ORDERED: PROM1SUP7 RECTAL (12:02)
[2018-01-11 12:05] VITALS: BP 140/66; PULSE 53; RESP 16; O2SAT 99
[2018-01-11 12:09] LABS: BILIRUBIN, URINE NEG (NEG); BLOOD, URINE NEG (NEG); GLUCOSE,URINE NEG (NEG); KETONE, URINE 15 mg/dL (NEG); NITRITE,URINE NEG (NEG); PH, URINE GREATER/EQUAL 9.0 (5.0-8.5); URINE COLOR YELLOW (YELLW/STRAW); URINE LEUKOCYTE ESTERASE NEG (NEG)
[2018-01-11 12:22] LABS: BACTERIA, URINE RARE /hpf
== END 2018-01-11 12:50 | disposition home or self-care (01) ==
LOC: PHED 09:36
DX: F11.23 Opioid dependence with withdrawal (principal); R11.0 Nausea; T40.2X5A Adverse effect of other opioids, initial encounter; E78.00 Pure hypercholesterolemia, unspecified; F31.9 Bipolar disorder, unspecified; F41.9 Anxiety disorder, unspecified; I10 Essential (primary) hypertension; J44.9 Chronic obstructive pulmonary disease, unspecified; F17.200 Nicotine dependence, unspecified, uncomplicated
CPT/HCPCS: 74176; 80053; 80307; 81001; 83690; 85025; 96374; 96375; 99284; J0780; J1200; J2405; J2270